=== PATIENT | male | born 1945 | race Caucasian/White ===

== ENCOUNTER 2020-06-15 14:46 | Outpatient (CLI) | payer MEDICARE, SELFPAY ==
--- NOTE | ~2020-06-15 | US_ITS ---
US venous doppler LE RT DATE: 06/15/2020 15:36 INDICATION: Right leg swelling since August 2019 TECHNIQUE: Real-time and color flow imaging and Doppler analysis of the veins of the right lower extr emity COMPARISON: None FINDINGS: The right greater saphenous vein is patent. There is spontaneous and phasic flow and normal augmentation and color flow signal and normal compression of the deep veins of the right lower extre mity. IMPRESSION: No evidence of deep venous thrombosis of the right leg Reviewed, dictated and finalized at Location A. Reviewed, dictated and finalized at location B.
== END 2020-06-15 14:47 | disposition home or self-care (01) ==
PROVIDERS: Visit Provider Orthopaedic Surgery
DX: M79.89 Other specified soft tissue disorders (principal)
CPT/HCPCS: 93971

== ENCOUNTER 2021-10-19 09:40 | Outpatient (CLI) | payer MEDICARE, SELFPAY ==
--- NOTE | 2021-10-19 | ECG_ITS ---
Measurements Intervals [place] Rate: 74 P: AR: 0 QRS: -62 QRSD: 190 T: 73 QT: 448 QTc: 498 Interpretive Statements ELECTRONIC VENTRICULAR PACEMAKER WITH INHIBITION NO FURTHER INTERPRETATION IS POSSIBLE ATYPICAL ECG Electronically Signed On 10-19-2021 10:31:25 ASSOCIATE PRODUCT INTEGRITY ENGINEER by Lawrence Irby D.O.
[2021-10-19 10:05] LABS: Hematocrit 43.4 % (42.0-52.0); Hemoglobin 14.7 g/dL (14.0-18.0)
[2021-10-19 10:33] LABS: Albumin Level 4.4 g/dL (3.5-5.1); Estimated Glomerular Filt Rate > 60; Glucose 115 mg/dL (65-110)
[2021-10-19 11:59] LABS: Hemoglobin A1C 6.2 % (<5.7)
== END 2021-10-19 09:41 | disposition home or self-care (01) ==
LOC: ANHLAB 09:49
PROVIDERS: PCP Family Medicine; Visit Provider Orthopaedic Surgery
DX: Z01.818 Encounter for other preprocedural examination (principal); M17.12 Unilateral primary osteoarthritis, left knee; E11.9 Type 2 diabetes mellitus without complications; I48.91 Unspecified atrial fibrillation
CPT/HCPCS: 36415; 82040; 82565; 82947; 83036; 85014; 85018; 93005

== ENCOUNTER 2025-09-24 11:29 | Outpatient (CLI) | payer MEDICARE, SELFPAY ==
--- NOTE | ~2025-09-24 | XR_ITS ---
EXAMINATION: XR knee LT min 4V, 09/24/2025 11:50 CDT HISTORY: M17.12 - Unilateral primary osteoarthritis, left knee COMPARISON: No comparisons available. Findings: No acute fracture or malalignment. Severe tricompartmental degenerative changes with joint effusion Soft tissues unremarkable. Impression: No acute fracture or malalignment. Reviewed, dictated and finalized at location P. Impression: No acute fracture or malalignment.
--- OUTSIDE RECORDS SUMMARY | 2025-09-24 13:07 | XMS_ITS | Encounter Summary ---
Author Organization [facility] Address [address] [place] [address] Phone Care Team Providers Care Translator Interpreter Name Role Phone Olaf To Oscar DPM Unavailable [phone] Denys La MD Primary Care Provider [phone] Aramis Bae MD Unavailable Kun Renteria MD Unavailable [phone] Nurse, Rajendra Antoine Coag Unavailable Unavailab Nga Santana APRN, CLOTH WASHER Unavailable [phone] Allyssa Michele RN Unavailable Unavailable Reason for Visit * Reason Onset Date Comments Appointment 11/21/2024 Advice Only 11/21/2024 Encounter Details Date Type Department Care Team (Late st Contact Info) Description 11/21/2024 [facility] [address] [place] [address] Denys La MD [address] [address] Appointment; Advice Only Social History Tobacco Use Types Packs/Day Years Used Date Smoking Tobacco: Former Cigarettes 1 Q uit: 03/15/2005 Cigars Smokeless Tobacco: Never Alcohol Use Standard Drinks/Week Comments Not Currently 2 (1 standard drink = 0.6 oz pur e alcohol) rare [facility] Utilities Answer Date Recorded In the past 12 months has th e [employer], gas, oil, or water [employer] threatened to shut off services in your home? No 08/12/2024 Social Connection and Isolation Panel Answer Date Recorded In a typical week, how many times do you talk on the phone with family, friends, or neighbors? Twice a week 08/12/2024 How often do you get togethe r with friends or relatives? Patient declined 08/12/2024 How often do you attend mormon or orthodoxy serv ices? Patient declined 08/12/2024 Do you belong to any clubs o r organizations such as mormon groups, unions, fraternal or athletic groups, or school groups? Yes 08/12/2024 How often do you attend meet ings of the clubs or organizations you belong to? Patient declined 08/12/2024 Are you , , di vorced, , never , or living with a partner? 08/12/2024 AUDIT-C Answer Date Recorded Q1: How often do you have a drink containing alcohol? Never 08/12/2024 Q2: How many drinks containi ng alcohol do you have on a typical day when you are drinking? Patient does not drink Q3: How often do you have si x or more drinks on one occasion? Never 08/12/2024 Overall Financial Resource Strain (CARDIA) Answe r Date Recorded How hard is it for you to pa y for the very basics like food, housing, medical care, and heating? Patient declined 08/12/2024 PHQ-2 Answer Date Recorded PHQ-2 Score 0 07/26/2019 [facility] - Occupational Stress Questionnaire Answer Date Recorded Do you feel stress - tense, restless, nervous, or anxious, or unable to sleep at night because your mind is troubled all the time - these days? Not at all 08/12/2024 Exercise Vital Sign Answer Date Recorde d On average, how many days pe r week do you engage in moderate to strenuous exercise (like a brisk walk)? Patient declined On average, how many minutes do you engage in exercise at this level? Patient declined 08/12/2024 Hunger Vital Sign Answer Date Recorded Within the past 12 months, y ou worried that your food would run out before you got the money to buy more. Never true 08/12/20 24 Within the past 12 months, t he food you bought just didn't last and you didn't have money to get more. Never true 08/12/2024 PRAPARE - Transportation Answer Date Re corded In the past 12 months, has l ack of transportation kept you from medical appointments or from getting medications? No 07/28 In the past 12 months, has l ack of transportation kept you from meetings, work, or from getting things needed for daily living? No 08/12/2024 Housing Stability Vital Sign Answer Danish e Recorded In the last 12 months, was t here a time when you were not able to pay the mortgage or rent on time? Patient declined 01/04/20 Number of Places Lived in the Last Year Not on f ile 01/04/2024 In the last 12 months, was t here a time when you did not have a steady place to sleep or slept in a residential (including now)? Patient declined 01/04/2024 Housing Stability Vital Sign Answer Danish e Recorded In the last 12 months, was t here a time when you were not able to pay the mortgage or rent on time? Patient declined 08/12/20 24 In the past 12 months, how m any times have you moved where you were living? 0 08/12/2024 At any time in the past 12 m [facility], were you homeless or living in a residential (including now)? Patient declined 08/12/2024 Education Answer Date Recorded What is the highest level of school you have completed or the highest degree you have received? 12th grade 09/21/2020 Sexually Active Control Partners Comments Yes Female Sex and Gender Information Value Date Recorded Sex Assigned at Not on file Legal Sex Male 7:05 PM CDT Gender Identity Not on file Sexual Orientation Not on file documented as of this encounter Miscellaneous Notes * Telephone Encounter - Denys La MD - 11/21/2024 11:32 AM DIRECTOR NEWS Thanks for the update. Will discuss during telephone visit today. Thanks! CTOR NEWS * Telephone Encounter - Magalys Dash RN - 11/21/2024 8:06 AM CST Situation: calling, (PRD invalid) This nurse obtained permission from patient to speak with . Calling to ask questions regarding ED visit 11/20. Patient noticed a little swelling on 11/18. The following day he woke up and left hand was very swollen and painful. Patient states that he did not sleep that well, went to the ED 11/20. Swelling decreased in left hand and patient reports little pain. Background: Patient is diabetic. Patient is on prednisone 50 mg tablet daily for 7 days. 11/21 is day 2 of prednisone. ---Fasting blood sugar 292 11/21, which is high for patient. Patient was prescribed Meloxicam 7.5 mg PO daily. Patient states he did take this morning. Lexicompstates- Meloxicam and Warfarin = consider therapy modification. D Meloxicam (Nonsteroidal Anti-Inflammatory Agents (Nonselective)) - Warfarin (Vitamin K Antagonists) Fasting blood sugar 292 at 0355 this am.. Patient ate this morning, having patient take blood sugaragain. Blood at 0815 is 180. Patient is on glimepiride 2 mg daily. Monitors blood sugar once a day. Assessment: Swelling decreased and pain is gone. Advised patient. All Patient Appointments Date & Time Provider Department Dept 11/21/2024 5:00 PM Denys La [facility] Family [facility] Arrive at: Telephone Visit [phone] 11/29/2024 10:15 AM Cornelius Riddle [facility] [phone] 04/04/2025 10:30 AM Nga Caba [facility] [phone] Address verified. Assistive services verified. Recommendation: Advised patient steroids can increase blood sugar, to monitor blood sugar for fasting and each meal, until discussed with provider. Advised patient to hold Meloxicam until discusses with provider. Further monitoring with warfarin. Scheduled patient ED follow up today to discuss recent ED visit. Patient already had a telephone visit scheduled. Called front desk receptionist, patient was not aware, telephone visit was scheduled for today. Called patient and back to ask what appointment they would prefer. Patient prefers telephone visit. Encounter routed to provider high priority to notify. CTOR NEWS documented in this encounter Plan of Treatment Upcoming Encounters Date Type Department Care Team (Late st Contact Info) Description 09/26/2025 7:45 AM CDT Office Visit [facility] - Family Medicine - [place] [address] [place] [address] Cornelius Riddle, BUSINESS SYSTEM CONSULTANT, CLOTH WASHER #2 [facility] [address] [place] [address] 05/19/2026 9:00 AM CDT Office Visit [facility] - Pulmonology & Sleep Medicine - [place] [address] [place] [address] Nga Caba BUSINESS SYSTEM CONSULTANT, CLOTH WASHER #2 [facility] [address] [place] [address] documented as of this encounter Visit Diagnoses Not on filedocumented in this encounter Additional Health Concerns Infection Onset Date Last Indicated Resolved Time Respiratory Rule-Out 11/29/2024 11/29/2024 025 10:21 AM DIRECTOR NEWS COVID - 19 11/29/2024 11/29/2024 11/29/2024 10:2 1 AM DIRECTOR NEWS Respiratory Rule-Out 03/04/2025 03/04/2025 025 10:13 AM CDT Assessment Noted Time PHQ-9 Depression Total Score: 0 08/18/20 21 10:25 AM CDT documented as of this encounter Care Teams Translator Interpreter Relationship Specialty Start Date End Date Denys La MD [address] [address] PCP - General Family Medicine 11/21/17 Olaf To DPM Podiatry 03/28/16 Aramis Bae MD #2 [facility] [address] [place] [address] Consulting Physician Interventional Cardiology 09/23/20 Kun Renteria MD #2 [facility] [address] [place] [address] General Surgery 10/26/20 Rajendra Sarkar Anti Coag [place] 02/19/21 Nga Caba APRN, CLOTH WASHER #2 [facility] [address] [place] [address] Nurse Practitioner Advanced Practice Nurse 03/21/22 Allyssa Michele, RN [place] Nurse Steel Manager 03/26/25 04/04/25 documented as of this encounter
--- OUTSIDE RECORDS SUMMARY | 2025-09-24 13:07 | XMS_ITS | Encounter Summary ---
Author Organization [facility] Address [address] [place] [address] Phone Care Team Providers Care Pharmacy Benefits Coordinator Name Role Phone Olaf To DPM Unavailable [phone] Denys La MD Primary Care Provider [phone] Aramis Bae MD Unavailable Kun Renteria MD Unavailable [phone] Nurse, Rajendra Antoine Coag Unavailable Unavailab Allyssa Kay RN Unavailable Unavailable Nga Caba APRN, CNP Unavailable [phone] Allyssa Michele RN Unavailable Unavailable Allyssa Michele RN Unavailable Unavailable Reason for Visit * Reason Comments Medication Refill Encounter Details Date Type Department Care Team (Late st Contact Info) Description 11/07/2021 Refill [facility] - Family Medicine [facility] [address] [place] [address] Denys La MD #[address] [address] Medication Refill Social History Tobacco Use Types Packs/Day Years Used Date Smoking Tobacco: Former Cigarettes 1 Q uit: 03/15/2005 Cigars Smokeless Tobacco: Never Alcohol Use Standard Drinks/Week Comments Yes 0 (1 standard drink = 0.6 oz pur e alcohol) occasionally PHQ-2 Answer Date Recorded PHQ-2 Score 0 07/26/2019 Education Answer Date Recorded What is the highest level of school you have completed or the highest degree you have received? 12th grade 09/21/2020 Sexually Active Control Partners Comments Yes Female Sex and Gender Information Value Date Recorded Sex Assigned at Not on file Legal Sex Male 7:05 PM CDT Gender Identity Not on file Sexual Orientation Not on file COVID-19 Exposure Response Date Recorded In the last month, have you been in contact with someone who was confirmed or suspected to have Coronavirus / COVID-19? No / Unsure 10/26/2021 12:53 PM STRUCTURAL IRON ERECTOR documented as of this encounter Plan of Treatment Upcoming Encounters Date Type Department Care Team (Late st Contact Info) Description 09/26/2025 7:45 AM CDT Office Visit [facility] - Family Medicine - [place] [address] [place] [address] Cornelius Riddle, CAR SEAT MAKER, MOLASSES AND CARAMEL OPERATOR #2 [facility] [address] [place] [address] 05/19/2026 9:00 AM CDT Office Visit [facility] - Pulmonology & Sleep Medicine [facility] [address] [place] [address] Nga Caba CAR SEAT MAKER, MOLASSES AND CARAMEL OPERATOR #2 [facility] [address] [place] [address] documented as of this encounter Visit Diagnoses Not on filedocumented in this encounter Additional Health Concerns Infection Onset Date Last Indicated Resolved Time COVID - 19 10/26/2021 10/26/2021 11/15/2021 12:1 6 AM STRUCTURAL IRON ERECTOR COVID - 19 Confirmed 10/26/2021 10/26/2021 021 12:16 AM STRUCTURAL IRON ERECTOR Respiratory Rule-Out 11/29/2024 11/29/2024 025 10:21 AM STRUCTURAL IRON ERECTOR COVID - 19 11/29/2024 11/29/2024 11/29/2024 10:2 1 AM STRUCTURAL IRON ERECTOR Respiratory Rule-Out 03/04/2025 03/04/2025 025 10:13 AM CDT Assessment Noted Time PHQ-9 Depression Total Score: 0 08/18/20 21 10:25 AM CDT documented as of this encounter Care Teams Pharmacy Benefits Coordinator Relationship Specialty Start Date End Date Denys La MD #2 [facility] [address] [place] [address] PCP - General Family Medicine 11/21/17 Olaf To DPM Podiatry 03/28/16 Aramis Bae MD #2 [facility] [address] [place] [address] Consulting Physician Interventional Cardiology 09/23/20 Kun Renteria MD #2 [facility] [address] [place] [address] General Surgery 10/26/20 Rajendra Sarkar Anti Coag [place] 02/19/21 Allyssa Michele, RN [place] Logistic Specialist 08/09/21 10/08/23 Nga Caba APRN, MOLASSES AND CARAMEL OPERATOR #2 [facility] [address] [place] [address] Nurse Practitioner Advanced Practice Nurse 03/21/22 Allyssa Michele, RN [place] Nurse Logistic Specialist 06/04/24 06/04/24 Allyssa Michele, RN [place] Nurse Logistic Specialist 03/26/25 04/04/25 documented as of this encounter
--- OUTSIDE RECORDS SUMMARY | 2025-09-24 13:08 | XMS_ITS | Encounter Summary ---
Author Organization [facility] Address [address] [place] [address] Phone Care Team Providers Care Sleep Lab Technician Name Role Phone Olaf To DPM Unavailable [phone] Denys La MD Primary Care Provider [phone] Aramis Bae MD Unavailable Kun Renteria MD Unavailable [phone] Nurse, Rajendra Antoine Coag Unavailable Unavailab Allyssa Kay RN Unavailable Unavailable Nga Caba APRN, CNP Unavailable [phone] Allyssa Michele RN Unavailable Unavailable Allyssa Michele RN Unavailable Unavailable Reason for Visit * Reason Comments Medication Refill Encounter Details Date Type Department Care Team (Late st Contact Info) Description 02/27/2022 Refill [facility] - Family Medicine [facility] [address] [place] [address] Denys La MD #[address] [address] Medication Refill Social History Tobacco Use Types [...] Exposure Response Date Recorded In the last 10 days, have yo u been in contact with someone who was confirmed or suspected to have Coronavirus/COVID-19? No / Unsure 02/25/2022 8:12 AM CDT documented as of this encounter Miscellaneous Notes * Telephone Encounter - Radha Johnson RN - 02/28/2022 9:48 AM CDT Medication failed the protocol, provider to review and approve the medication order if appropriate. Requested Prescriptions Pending Prescriptions Disp Refills colestipol (COLESTID) 1 GM Tablet [Pharmacy Med Name: Colestipol HCl 1 GM Oral Tablet] 360 Tablet 0 Sig: Take 2 tablets by mouth twice daily Bile Acid Sequestrants Protocol Passed - 02/27/2022 10:07 AM Passed - Visit with relevant provider in past year or upcoming 90 days Recent Visits Date Type Provider Dept 02/04/22 Office Visit Cornelius Riddle APRN, SARAH [facility] 11/02/21 Telemedicine Cornelius Riddle APRN, SARAH [facility] 10/29/21 Telemedicine Cornelius Riddle APRN, SAR[facility] 10/26/21 Office Visit Cornelius Riddle APRN, SARAH [facility] 08/03/21 Office Visit Denys La MD [facility] 05/03/21 Office Visit Denys La MD [facility] 03/25/21 Office Visit Cornelius Riddle APRN, SARAH [facility] Showing recent visits within past 365 days and meeting all other requirements Future Appointments Date Type Provider Dept 05/09/22 Appointment Cornelius Riddle APRN, SAR[facility] Showing future appointments within next 90 days and meeting all other requirements Passed - Lipid panel in past year LDL Date Value Ref Range Status 02/07/2022 68 5 - 130 mg/dL Final HDL CHOLESTEROL Date Value Ref Range Status 02/07/2022 43.4 >40 mg/dL Final CHOLESTEROL Date Value Ref Range Status 02/07/2022 151 <=200 mg/dL Final TRIGLYCERIDES Date Value Ref Range Status 02/07/2022 200 (H) <150 mg/dL Final VLDL Date Value Ref Range Status 02/07/2022 40 5 - 55 mg/dL Final CHOL/HDL RATIO Date Value Ref Range Status 02/07/2022 3.5 0.0 - 4.4 Final NON-HDL CHOLESTEROL Date Value Ref Range Status 02/07/2022 107.6 <130 mg/dL Final documented in this encounter Plan of Treatment Upcoming Encounters Date Type Department Care Team (Late st Contact Info) Description 09/26/2025 7:45 AM CDT Office Visit [facility] - Family Medicine - [place] [address] [place] [address] Cornelius Riddle, FORGING DIE SINKER, PAN WASHER HAND #2 [facility] [address] [place] [address] 05/19/2026 9:00 AM CDT Office Visit [facility] - Pulmonology & Sleep Medicine - [place] [address] [place] [address] Nga Caba, FORGING DIE SINKER, PAN WASHER HAND #2 [facility] [address] [place] [address] documented as of this encounter Visit Diagnoses Diagnosis Diarrhea, unspecified type documented in this encounter Additional Health Concerns Infection Onset Date Last Indicated Resolved Time Respiratory Rule-Out 11/29/2024 11/29/2024 025 10:21 AM CULTURE ROOM WORKER COVID - 19 11/29/2024 11/29/2024 11/29/2024 10:2 1 AM CULTURE ROOM WORKER Respiratory Rule-Out 03/04/2025 03/04/2025 025 10:13 AM CDT Assessment Noted Time PHQ-9 Depression Total Score: 0 08/18/20 21 10:25 AM CDT documented as of this encounter Care Teams Sleep Lab Technician Relationship Specialty Start Date End Date Denys La MD #2 [facility] [address] [place] [address] PCP - General Family Medicine 11/21/17 Olaf To DPM Podiatry 03/28/16 Aramis Bae MD #2 [facility] [address] [place] [address] Consulting Physician Interventional Cardiology 09/23/20 Kun Renteria MD #2 [facility] [address] [place] [address] General Surgery 10/26/20 Rajendra Sarkar Anti Coag [place] 02/19/21 Allyssa Michele, RN [place] Injection Molding Machine Operator 08/09/21 10/08/23 Nag Caba APRN, PAN WASHER HAND #2 [facility] [address] [place] [address] Nurse Practitioner Advanced Practice Nurse 03/21/22 Allyssa Michele, RN [place] Nurse Injection Molding Machine Operator 06/04/24 06/04/24 Allyssa Michele, RN [place] Nurse Injection Molding Machine Operator 03/26/25 04/04/25 documented as of this encounter
--- OUTSIDE RECORDS SUMMARY | 2025-09-24 13:08 | XMS_ITS | Encounter Summary ---
Author Organization [facility] Address [address] [place] [address] Care Team Providers Care Relocation Coordinator Name Role Phone Denys La MD Primary Care Provider [phone] Reason for Referral * Diagnostic Imaging (Routine) - Authorized Specialty Diagnoses / Procedures Referred By Contac t Referred To Contact Diagnoses Thoracic aortic aneurysm without rupture, unspecified part Procedures NM MPI SPECT (Rest and/or Stress) Multiple Studies Aramis Bae MD [address] [place] [address] [address] [place] [address] Phone: tel: fax: [address] [address] Referral ID Status Reason Start Date Expiration Date V isits Requested Visits Authorized [id number] Authorized 09/23/2025 10/23/2026 1 1 Encounter Details Date Type Department Care Team (Late st Contact Info) Description 09/23/2025 Orders Only [facility] Counselor at [address] [place] [address] Aramis Bae MD [address] [place] [address] [address] B[address]KS [address] [place] [address] Thoracic aortic aneurysm without rupture, unspecified part (Primary Dx) Social History Tobacco Use Types Packs/Day Years Used Date Smoking Tobacco: Former Smokeless Tobacco: Never Alcohol Use Standard Drinks/Week Comments Never 0 (1 standard drink = 0.6 oz pur e alcohol) AUDIT-C Answer Date Recorded Frequency of Alcohol Consumption Never 10/07/2019 Average Number of Drinks Not on file 019 Frequency of Binge Drinking Not on file 09/27 PHQ-2 Answer Date Recorded PHQ-2 Total Score 0 07/16/2020 Personal Safety Answer Date Recorded Have you ever been in or are you currently in a harmful physical or emotional relationship or is someone making you feel afraid or unsafe? Denies 04/01/2025 Sex and Gender Information Value Date Recorded Sex Assigned at Not on file Legal Sex Male 5:32 PM LIVESTOCK SALES REPRESENTATIVE Gender Identity Male 12/15/2020 8:24 AM LIVESTOCK SALES REPRESENTATIVE Sexual Orientation Straight 12/15/2020 8: 24 AM LIVESTOCK SALES REPRESENTATIVE documented as of this encounter Plan of Treatment Scheduled Orders Name Type Priority Associated Diagnoses Orde r Schedule NM MPI SPECT (Rest and/or Stress) Multiple Studies Imaging Schedule Routine, Read Routine (OP Routine) Thoracic aortic aneurysm without rupture, unspecified part Expected: 09/23/2025, Expires: 09/23/2026 documented as of this encounter Visit Diagnoses Diagnosis Thoracic aortic aneurysm without rupture, unspecified part- Primary documented in this encounter Care Teams Relocation Coordinator Relationship Specialty Start Date End Date Denys La MD [address] [place] [address] PCP - General Family Medicine 09/01/20 documented as of this encounter
--- OUTSIDE RECORDS SUMMARY | 2025-09-24 13:08 | XMS_ITS | Encounter Summary ---
Author Organization [facility] Address [address] [place] [address] Phone Care Team Providers Care Set Decorator Name Role Phone Olaf To DPM Unavailable [phone] Denys La MD Primary Care Provider [phone] Aramis Bae MD Unavailable Kun Renteria MD Unavailable [phone] Nurse, Rajendra Antoine Coag Unavailable Unavailab Allyssa Kay RN Unavailable Unavailable Nga Caba APRN, CNP Unavailable [phone] Allyssa Michele RN Unavailable Unavailable Allyssa Michele RN Unavailable Unavailable Reason for Visit * Reason Comments Medication Refill Encounter Details Date Type Department Care Team (Late st Contact Info) Description 03/20/2022 Refill [facility] #2 [place] [address] Denys La MD #[address] [address] Medication Refill Social History Tobacco Use Types [...] suspected to have Coronavirus/COVID-19? No / Unsure 03/21/2022 9:26 AM CDT documented as of this encounter Plan of Treatment Upcoming Encounters Date Type Department Care Team (Late st Contact Info) Description 09/26/2025 7:45 AM CDT Office Visit [facility] - Family Medicine [facility] #2 [place] [address] Cornelius Riddle APRN, JEWELRY BENCH MOLDER #2 [facility] [address] [place] [address] 05/19/2026 9:00 AM CDT Office Visit [facility] - Pulmonology & Sleep Medicine [facility] #2 [place] [address] Nga Caba APRN, JEWELRY BENCH MOLDER #2 [facility] [address] [place] [address] documented as of this encounter Visit Diagnoses Not on filedocumented in this encounter Additional Health Concerns Infection Onset Date Last Indicated Resolved Time Respiratory Rule-Out 11/29/2024 11/29/2024 025 10:21 AM PUBLIC AREA SUPERVISOR COVID - 19 11/29/2024 11/29/2024 11/29/2024 10:2 1 AM PUBLIC AREA SUPERVISOR Respiratory Rule-Out 03/04/2025 03/04/2025 025 10:13 AM CDT Assessment Noted Time PHQ-9 Depression Total Score: 0 08/18/20 21 10:25 AM CDT documented as of this encounter Care Teams Set Decorator Relationship Specialty Start Date End Date Denys La MD #2 [facility] [address] [place] [address] PCP - General Family Medicine 11/21/17 Olaf To DPM Podiatry 03/28/16 Aramis Bae MD #2 [facility] [address] [place] [address] Consulting Physician Interventional Cardiology 09/23/20 Kun Renteria MD #2 [facility] [address] [place] [id number] General Surgery 10/26/20 NurseRajendra Anti Coag [place] 02/19/21 Allyssa Michele, RN [place] Differential Repairer 08/09/21 10/08/23 Nga Caba APRN, JEWELRY BENCH MOLDER #2 [facility] [address] [place] [address] Nurse Practitioner Advanced Practice Nurse 03/21/22 Allyssa Michele, RN [place] Nurse Differential Repairer 06/04/24 06/04/24 Allyssa Michele, RN [place] Nurse Differential Repairer 03/26/25 04/04/25 documented as of this encounter
--- OUTSIDE RECORDS SUMMARY | 2025-09-24 13:08 | XMS_ITS | Encounter Summary ---
Author Organization [facility] Address [address] [place] [address] Phone Care Team Providers Care Chrome Tanner Name Role Phone Olaf To DPM Unavailable [phone] Denys La MD Primary Care Provider [phone] Aramis Bae MD Unavailable Kun Renteria MD Unavailable [phone] Nurse, Benita Antoine Coag Unavailable Unavailab Allyssa Kay RN Unavailable Unavailable Nga Caab APRN, CNP Unavailable [phone] Allyssa Michele RN Unavailable Unavailable Allyssa Michele RN Unavailable Unavailable Reason for Visit * Reason Comments Medication Refill Encounter Details Date Type Department Care Team (Late st Contact Info) Description 07/24/2023 Refill [facility] - [place] #2 [place] [address] Denys La MD #[address] [address] Medication Refill Social History Tobacco Use Types Packs/Day Years Used Date Smoking Tobacco: Former Cigarettes 1 Q uit: 03/15/2005 Cigars Smokeless Tobacco: Never Alcohol Use Standard Drinks/Week Comments Yes 0 (1 standard drink = 0.6 oz pur e alcohol) rare PHQ-2 Answer Date Recorded PHQ-2 Score 0 [...] encounter Miscellaneous Notes * Telephone Encounter - Diya Brown RN - 07/24/2023 3:01 PM CDT Anticoag Flowsheet last updated 04/25/23 - 7.5 mg daily - repeat lab 05/26/23 Pt had lab done at [facility] prior to pacemaker placement. Lab Results - documented in this encounter (ABNORMAL) Protime-INR (06/05/2023 11:48 AM CDT) Lab Results - (ABNORMAL) Protime-INR (06/05/2023 11:48 AM CDT) PT 28.0 (H) 10.3 - 13.7 sec ? [facility] ([facility]) ?? INR 2.46 (H) 0.90 - 1.20 ? [facility] ([facility] ?? Should he continue same dose? Repeat? documented in this encounter Plan of Treatment Upcoming Encounters Date Type Department Care Team (Late st Contact Info) Description 09/26/2025 7:45 AM CDT Office Visit [facility] - Family Medicine - [place] #2 [place] [address] Cornelius Riddle, ANGEL, PROPOSAL COORDINATOR #[address] [address] 05/19/2026 9:00 AM CDT Office Visit [facility] - Pulmonology & Sleep Medicine - [place] #2 [place] [address] Nga Caba APRN, PROPOSAL COORDINATOR #2 [facility] [address] [place] [address] documented as of this encounter Visit Diagnoses Not on filedocumented in this encounter Additional Health Concerns Infection Onset Date Last Indicated Resolved Time Respiratory Rule-Out 11/29/2024 11/29/2024 025 10:21 AM GERIATRIC PERSONAL CARE AIDE COVID - 19 11/29/2024 11/29/2024 11/29/2024 10:2 1 AM GERIATRIC PERSONAL CARE AIDE Respiratory Rule-Out 03/04/2025 03/04/2025 025 10:13 AM CDT Assessment Noted Time PHQ-9 Depression Total Score: 0 08/18/20 10:25 AM CDT documented as of this encounter Care Teams Chrome Tanner Relationship Specialty Start Date End Date Denys La MD #2 [facility] [address] [place] [address] PCP - General Family Medicine 11/21/17 Olaf To DPM Podiatry 03/28/16 Aramis Bae MD #2 [facility] [address] [place] [address] Consulting Physician Interventional Cardiology 09/23/20 Kun Renteria MD #2 [facility] [address] [place] [address] General Surgery 10/26/20 NurseBenita Anti Coag [place] 02/19/21 Allyssa Michele, VIOLETA [place] Diesel Lube Tech 08/09/21 10/08/23 Nga Caba APRN, PROPOSAL COORDINATOR #2 [facility] [address] [place] [address] Nurse Practitioner Advanced Practice Nurse 03/21/22 Allyssa Michele RN [place] Nurse Diesel Lube Tech 06/04/24 06/04/24 Allyssa Michele RN [place] Nurse Diesel Lube Tech 03/26/25 04/04/25 documented as of this encounter
--- OUTSIDE RECORDS SUMMARY | 2025-09-24 13:08 | XMS_ITS | Encounter Summary ---
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
--- OUTSIDE RECORDS SUMMARY | 2025-09-24 13:08 | XMS_ITS | Encounter Summary ---
Author Organization [facility] Address [address] [place] [address] Phone Care Team Providers Care Patch Driller Name Role Phone Olaf To Oscar DPM Unavailable [phone] Denys La MD Primary Care Provider [phone] Aramis Bae MD Unavailable Kun Renteria MD Unavailable [phone] Nurse, Rajendra Antoine Coag Unavailable Unavailab Nga Santana APRN, SPEECH LANGUAGE PATHOLOGY ASSISTANT Unavailable [phone] Allyssa Michele RN Unavailable Unavailable Allyssa Michele RN Unavailable Unavailable Reason for Visit * Reason Comments Medication Refill Encounter Details Date Type Department Care Team (Late st Contact Info) Description 04/19/2024 Refill [facility] - Family Medicine [facility] #2 [place] [address] Denys La MD #[address] [address] Medication Refill Social History Tobacco Use Types Packs/Day Years Used Date Smoking Tobacco: Former Cigarettes 1 Q uit: 03/15/2005 Cigars Smokeless Tobacco: Never Alcohol Use Standard Drinks/Week Comments Yes 0 (1 standard drink = 0.6 oz pur e alcohol) rare [facility] Utilities Answer Date Recorded In the past 12 months has e [employer], gas, oil, or water [employer] threatened to shut off services in your home? Patient declined 01/04/2024 Social Connection and Isolation Panel Answer Date Recorded In a typical week, how many times do you talk on the phone with family, friends, or neighbors? Patient declined 01/04/2024 How often do you get togethe r with friends or relatives? Patient declined 01/04/2024 How often do you attend hinduism or uatsdin serv ices? Patient declined 01/04/2024 Do you belong to any clubs o r organizations such as hinduism groups, unions, fraternal or athletic groups, or school groups? Patient declined 01/04/2024 How often do you attend meet ings of the clubs or organizations you belong to? Patient declined 01/04/2024 Are you , , di vorced, , never , or living with a partner? Patient declined 01/04/2024 AUDIT-C Answer Date Recorded Q1: How often do you have a drink containing alc ohol? Patient declined 01/04/2024 Q2: How many drinks containi ng alcohol do you have on a typical day when you are drinking? Patient declined 01/04/2024 Q3: How often do you have si x or more drinks on one occasion? Patient declined 01/04/2024 Overall Financial Resource Strain (CARDIA) Answe r Date Recorded How hard is it for you to pa y for the very basics like food, housing, medical care, and heating? Patient declined 01/04/2024 PHQ-2 Answer Date Recorded PHQ-2 Score 0 07/26/2019 [facility] - Occupational Stress Questionnaire Answer Date Recorded Do you feel stress - tense, restless, nervous, or anxious, or unable to sleep at night because your mind is troubled all the time - these days? Patient declined 01/04/2024 Exercise Vital Sign Answer Date Recorde d On average, how many days pe r week do you engage in moderate to strenuous exercise (like a brisk walk)? Patient declined On average, how many minutes do you engage in exercise at this level? Patient declined 01/04/2024 Hunger Vital Sign Answer Date Recorded Within the past 12 months, y ou worried that your food would run out before you got the money to buy more. Patient declined Within the past 12 months, t he food you bought just didn't last and you didn't have money to get more. Patient declined 06/2024 PRAPARE - Transportation Answer Date Re corded In the past 12 months, has l ack of transportation kept you from medical appointments or from getting medications? Patient declined 01/04/2024 In the past 12 months, has l ack of transportation kept you from meetings, work, or from getting things needed for daily living? Patient declined 01/04/2024 Housing Stability Vital Sign Answer Danish e Recorded In the last 12 months, was t here a time when you were not able to pay the mortgage or rent on time? Patient declined 01/04/20 24 Number of Places Lived in the Last Year Not on f ile 01/04/2024 In the last 12 months, was t here a time when you did not have a steady place to sleep or slept in a fpc (including now)? Patient declined 01/04/2024 Education Answer Date Recorded What is the [...] on file documented as of this encounter Plan of Treatment Upcoming Encounters Date Type Department Care Team (Late st Contact Info) Description 09/26/2025 7:45 AM CDT Office Visit [facility] - Family Medicine - [place] #2 [place] [address] Cornelius Riddle APRN, SPEECH LANGUAGE PATHOLOGY ASSISTANT #2 [facility] [address] [place] [address] 05/19/2026 9:00 AM CDT Office Visit [facility] - Pulmonology & Sleep Medicine - [place] #2 [place] [id number] Nga Caba APRN, SPEECH LANGUAGE PATHOLOGY ASSISTANT #2 [facility] [address] [place] [address] documented as of this encounter Visit Diagnoses Diagnosis 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 documented in this encounter Additional Health Concerns Infection Onset Date Last Indicated Resolved Time Respiratory Rule-Out 11/29/2024 11/29/2024 025 10:21 AM BILLIARD TABLE REPAIRER COVID - 19 11/29/2024 11/29/2024 11/29/2024 10:2 1 AM BILLIARD TABLE REPAIRER Respiratory Rule-Out 03/04/2025 03/04/2025 025 10:13 AM CDT Assessment Noted Time PHQ-9 Depression Total Score: 0 08/18/20 10:25 AM CDT documented as of this encounter Care Teams Patch Driller Relationship Specialty Start Date End Date Denys La MD #2 [facility] [address] [place] [address] PCP - General Family Medicine 11/21/17 Olaf To DPM Podiatry 03/28/16 Aramis Bae MD #2 [facility] [address] [place] [address] Consulting Physician Interventional Cardiology 09/23/20 Kun Renteria MD #2 [facility] [address] [place] [address] General Surgery 10/26/20 Rajendra Sarkar Anti Coag [place] 02/19/21 Nga Caba APRN, SPEECH LANGUAGE PATHOLOGY ASSISTANT #2 [facility] [address] [place] [address] Nurse Practitioner Advanced Practice Nurse 03/21/22 Allyssa Michele RN [place] Nurse Call Center Team Leader 06/04/24 06/04/24 Allyssa Michele RN [place] Nurse Call Center Team Leader 03/26/25 04/04/25 documented as of this encounter
--- OUTSIDE RECORDS SUMMARY | 2025-09-24 13:08 | XMS_ITS | Encounter Summary ---
Author Organization [facility] Address [address] [place] [address] Phone Care Team Providers Care Performance Improvement Director Name Role Phone Olaf To Oscar DPM Unavailable [phone] Denys La MD Primary Care Provider [phone] Aramis Bae MD Unavailable Kun Renteria MD Unavailable [phone] Nurse, Rajendra Antoine Coag Unavailable Unavailab Madeline Ferrera RN Unavailable UnavailAnnita Orozco RN Unavailable Unavailable Allyssa Michele RN Unavailable Unavailable Nga Caba APRN, OCULAR CARE TECHNOLOGIST Unavailable [phone] Allyssa Michele RN Unavailable Unavailable Allyssa Michele RN Unavailable Unavailable Reason for Visit * Reason Comments Medication Refill Encounter Details Date Type Department Care Team (Late st Contact Info) Description 10/18/2020 Refill [facility] [address] [place] [address] Denys La MD #[address] [address] Medication Refill Social History Tobacco Use Types [...] have Coronavirus / COVID-19? No / Unsure 10/16/2020 1:45 PM OIL FIELD TECHNICIAN documented as of this encounter Miscellaneous Notes * Telephone Encounter - Diya Brown RN - 10/19/2020 11:45 AM CST dicyclomine (BENTYL) 10 MG Capsule 90 Cap 3 12/31/2019 Sig: Take 1 Cap by mouth 3 times daily. Class: E Prescribe Route: Oral 1 year supply authorized 12/31/19 FIELD TECHNICIAN documented in this encounter Plan of Treatment Upcoming Encounters Date Type Department Care Team (Late st Contact Info) Description 09/26/2025 7:45 AM CDT [facility] Visit [facility] - Family Medicine - [place] #2 [place] [address] Cornelius Riddle APRN, OCULAR CARE TECHNOLOGIST #2 [facility] [address] [place] [address] 05/19/2026 9:00 AM CDT Office Visit [facility] - Pulmonology & Sleep Medicine - [place] #2 [place] [address] Nga Caba APRN, OCULAR CARE TECHNOLOGIST #2 [facility] [address] [place] [address] documented as of this encounter Visit Diagnoses Not on filedocumented in this encounter Additional Health Concerns Infection Onset Date Last Indicated Resolved Time COVID - 19 10/26/2021 10/26/2021 11/15/2021 12:1 6 AM OIL FIELD TECHNICIAN COVID - 19 Confirmed 10/26/2021 10/26/2021 021 12:16 AM OIL FIELD TECHNICIAN Respiratory Rule-Out 11/29/2024 11/29/2024 025 10:21 AM OIL FIELD TECHNICIAN COVID - 19 11/29/2024 11/29/2024 11/29/2024 10:2 1 AM OIL FIELD TECHNICIAN Respiratory Rule-Out 03/04/2025 03/04/2025 025 10:13 AM CDT Assessment Noted Time PHQ-9 Depression Total Score: 0 12/03/19 3:00 PM OIL FIELD TECHNICIAN documented as of this encounter Care Teams Performance Improvement Director Relationship Specialty Start Date End Date Denys La MD #2 [facility] [address] [place] [address] PCP - General Family Medicine 11/21/17 Olaf To DPM Podiatry 03/28/16 Aramis Bae MD #2 [facility] [address] [place] [address] Consulting Physician Interventional Cardiology 09/23/20 Kun Renteria MD #2 [facility] [address] [place] [address] General Surgery 10/26/20 Nurse, Rajendra Anti Coag [place] 02/19/21 Madeline Friedman RN [place] Circular Sawyer Helper 05/03/21 05/23/21 Annita Birch RN [place] Circular Sawyer Helper 05/24/21 08/08/21 Michele, Allyssa M, RN [place] Circular Sawyer Helper 08/09/21 10/08/23 Nga Caba, INSPECTOR PLUMBING, OCULAR CARE TECHNOLOGIST #[address] [address] Nurse Practitioner Advanced Practice Nurse 03/21/22 Allyssa Michele RN [place] Nurse Circular Sawyer Helper 06/04/24 06/04/24 Allyssa Michele RN [place] Nurse Circular Sawyer Helper 03/26/25 04/04/25 documented as of this encounter
--- OUTSIDE RECORDS SUMMARY | 2025-09-24 13:08 | XMS_ITS | Clinical Summary ---
Author Organization [facility] Medical Office Building A Address [address] [place] [address] Care Team Providers Care Rn Case Mgr Name Role Phone Denys La MD Primary Care Provider [phone] Allergies No known active allergies Medications cyanocobalamin (Vitamin B-12) 100 mcg tablet Take 1 tablet (100 mcg total) by mouth daily Active glimepiride (AMARYL) 1 mg tablet Take 1 tablet (1 mg total) by mouth daily before breakfast 3 9 Active lisinopril (PRINIVIL,ZESTRIL) 20 mg tablet Take 1 tablet (20 mg total) by mouth daily 9 Active tamsulosin (FLOMAX) 0.4 mg extended release capsule Take 1 capsule (0.4 mg total) by mouth daily 9 Active polycarbophil (FIBERCON) 625 mg tablet Take 1 tablet (625 mg total) by mouth daily Active dicyclomine (BENTYL) 10 mg capsule Take 1 capsule (10 mg total) by mouth 4 (four) times a day before meals and nightly Active colestipoL (COLESTID) 1 gram tablet Take 1 tablet (1 g total) by mouth 2 (two) times a day Active ergocalciferol (VITAMIN D) 50,000 unit capsule Take 1 capsule (50,000 Units total) by mouth once a week Active warfarin (COUMADIN) 5 mg tablet Take 1 tablet (5 mg total) by mouth daily 90 tablet 3 3 Active warfarin (COUMADIN) 7.5 mg tablet Take 1 tablet (7.5 mg total) by mouth daily 90 tablet 3 4 Active furosemide (LASIX) 20 mg tablet Take 1 tablet by mouth once daily 90 tablet 3 5 Active rosuvastatin (CRESTOR) 20 mg tablet Take 1 tablet by mouth once daily 90 tablet 3 5 Active warfarin (COUMADIN) 2 mg tabletIndications:W arfarin anticoagulation Take 3 tablets (6 mg total) by mouth as directed 180 tablet 3 5 Active Active Problems Problem Noted Date Diagnosed Date Pacemaker 06/20/2023 Morbid (severe) obesity due to excess calories 0 02/28/2022 Sick sinus syndrome 09/23/2020 Overview (09/23/2020): Sick sinus syndrome with atrial fibrillation rates down to the 30s despite CPAP machine use and complaints of fatigue, status post Biotronik Edora 8 D SRT on 16 September 2020 (RL). Assessment & Plan (09/23/2020 3:01 PM CDT): Patient complains of dizziness for at least a week. We discussed various possibilities but clearly it was not from low blood pressure or high blood pressure or slow heart rates Patient keeps a good record of blood pressure heart rates and there were no abnormalities that I could see. We looked at the medication and I wonder if Flomax could be the problem. I advised him to follow up with his primary care doctor soon. 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 10/07/2019 Encounters Date Type Department Care Team Description 09/23/2025 Orders Only [place] [employer] [facility] [employer] at [address] [place] [phone] Aramis Bae MD Thoracic aortic aneurysm without rupture, unspecified part (Primary Dx) 09/23/2025 Telephone [place] [employer] [facility] [employer] at [address] [place] [phone] Aramis Bae MD 09/12/2025 9:00 AM CDT Ancillary Procedure [place] [employer] [id number] [place] [address] [address] [place] [address] SSS (sick sinus syndrome) (HCC); Pacemaker 09/12/2025 Orders Only [place] [employer] [address] [place] [address] [address] [place] [address] Carmenza Noel MA SSS (sick sinus syndrome) (HCC) (Primary Dx); Pacemaker; Pacemaker reprogramming/check; Chronic atrial fibrillation (HCC) 09/11/2025 12:55 PM CDT Lab [address] Chronic atrial fibrillation (HCC) 09/11/2025 Anticoagulation Visit [place] [employer] [facility] [employer] at [address] [address] Marlon Rouse MA 09/04/2025 Anticoagulation Visit [place] [employer] [facility] [employer] at [address] [phone] Marlon Rouse MA 09/03/2025 9:45 AM CDT Lab [address] Chronic atrial fibrillation (HCC) 09/03/2025 Results Follow-Up [place] [employer] [facility] [employer] at [address] [phone] Marlon Rouse MA Protime-INR 08/06/2025 9:30 AM CDT Lab [address] Chronic atrial fibrillation (HCC) 08/06/2025 Anticoagulation Visit [place] [employer] [facility] [employer] at [address] [phone] Marlon Rouse MA 07/24/2025 Telephone [place] [employer] [facility] [employer] at [address] [phone] Aramis Bae MD 07/14/2025 Results Follow-Up [place] [employer] [facility] [employer] at [address] [place] [address] Chest WO Contrast 07/10/2025 9:45 AM CDT Lab [address] Chronic atrial fibrillation (HCC) 07/10/2025 Anticoagulation Visit [place] [employer] [facility] [employer] at [address] [place] [address] Salome Humphrey MA 07/10/2025 Results Follow-Up [place] [employer] [facility] [employer] at [address] [place] [phone] Salome Humphrey MA Protime-INR 07/01/2025 Orders Only [place] [employer] [facility] [employer] at [address] [place] [address] Aramis Bae MD Warfarin anticoagulation (Primary Dx) 07/01/2025 Anticoagulation Visit [place] [employer] [facility] [employer] at [address] [place] [address] Salome Humphrey MA 06/30/2025 9:15 AM CDT Ancillary Procedure [place] [employer] [facility] [employer] at [address] [place] [address] Pacemaker reprogramming/check (Primary Dx); SSS (sick sinus syndrome) (HCC); Pacemaker 06/30/2025 9:15 AM CDT Office Visit [place] [facility] [employer] at [address] [place] [address] Aramis Bae MD Chronic atrial fibrillation (HCC) (Primary Dx); RASHMI on CPAP; Pacemaker; Aneurysm of ascending aorta without rupture 06/30/2025 8:40 AM CDT Lab [address] Chronic atrial fibrillation (HCC) 06/30/2025 Results Follow-Up [place] [employer] [facility] [employer] at [address] [place] [address] Marlon Rouse MA Protime-INR 06/25/2025 6:32 AM CDT - 06/25/2025 11:59 PM CDT Hospital Encounter [facility] [address] [place] [address] Benign hypertension; Atherosclerosis of [place] coronary artery of buck[place] heart without angina pectoris Discharge Disposition: Discharge to home or self care 06/24/2025 8:34 AM CDT - 06/24/2025 11:59 PM CDT Hospital Encounter [facility] [address] [place] [address] Aneurysm of ascending aorta without rupture Discharge Disposition: Discharge to home or self care from Last 3 Months Surgical History Surgery Date Site/Laterality Comments HERNIA REPAIR Medical History Medical History Date Comments Coronary artery disease Diabetes mellitus Sleep apnea Hypertension Family History Medical History Relation Name Comments Cancer Father COPD Mother Relation Name Status Comments Father Mother Sister Alive TWO SISTERS Social History Tobacco Use Types Packs/Day Years Used Date Smoking Tobacco: Former Smokeless Tobacco: Never Tobacco Cessation:Counseling Given: Not Answered Alcohol Use Standard Drinks/Week Comments Never 0 [...] on file Legal Sex Male 5:32 PM SUPPORT REPRESENTATIVE Gender Identity Male 12/15/2020 8:24 AM SUPPORT REPRESENTATIVE Sexual Orientation Straight 12/15/2020 8: 24 AM SUPPORT REPRESENTATIVE Obstetrics History Last Filed Vital Signs Vital Sign Reading Time Taken Comments Blood Pressure 135/86 06/30/2025 9:02 AM CDT Pulse 80 06/30/2025 9:02 AM CDT Temperature 36.6 C (97.9 F) 04/01/2025 6:56 PM CDT Respiratory Rate 18 06/30/2025 9:02 AM CDT Oxygen Saturation 100% 04/01/2025 6:56 PM CDT Inhaled Oxygen Concentration - - Weight 129.7 kg (286 lb) 06/30/2025 9:02 AM CDT Height 190.5 cm (6' 3) 06/30/2025 9:02 AM CDT Body Mass Index 35.75 06/30/2025 9:02 AM CDT Plan of Treatment Health Maintenance Due Date Last Done Comments Hepatitis B Screening 1963 Well Visit 65+ 2010 Depression Screening 07/07/2021 07/07/2020, 07/07/20 Fall Risk Assessment 09/17/2021 09/17/2020 DTaP/Tdap/Td Vaccine (2 - Tdap) 07/13/2025 5 Covid-19 Vaccine (4 - 2024-2 6 season) 2025 08/24/2021, 01/26/2021, 12/29/2020 Influenza Vaccine (#1) 2025 2, 07/29/2021, 07/29/2020, Additional history exists Zoster Vaccine (2 of 2) 09/02/2025 07/08/2025 Pneumococcal vaccine 65+ Completed 020, 09/05/2016, 08/08/2011 Abdominal Aortic Aneurysm (A AA) Screen Completed 02/24/2022, 01/09/2020, 06/24/2019, Additional history exists Medical Devices Implanted Type Area Senior Clinical Data Coordinator Device Identifier Shelf Expiration Date Model / Serial / Lot [employer] Inc [id number] Endocardial Pacing Lead Promri Solia T 60 - [id number] - [id number] Implanted:Qty: 1 on 09/16/2020 by Henrique Bravo MD at [facility] Lead [employer] Inc 10/26/2021 [id number] / [id number] / [employer] Inc [id number] Edora Promri [id number] 1 Chamber Rate Adaptive Unipolar Bipolar - [id number] - [id number] Implanted:Qty: 1 on 09/16/2020 by Henrique Bravo MD at [facility] Pacemaker [employer]ik Inc 10/26/2020 [id number] / [id number] / [employer] Caroline [id number] Synergy 2.75mm 16mm 144cm Radiopaque 1 Access Port Inflation - [id number] Implanted:Qty: 1 on 07/16/2020 by Aramis Bae MD at [facility] Stent [employer] Caroline 10/06/2021 [id number] / / [id number] [employer] Caroline [id number] Synergy 2.75mm 20mm 144cm Radiopaque 1 Access Port Inflation - [id number] Implanted:Qty: 1 on 07/16/2020 by Aramis Bae MD at [facility] [employer]ent [employer] Caroline 11/12/2021 [id number] / / [id number] Medtronic Inc [id number] Tyrx 3.3x2.9in Large Envelope Absorbable Polyarylate Minocycline - [id number] Implanted:Qty: 1 on 09/16/2020 by Henrique Bravo MD at [facility] [employer] Inc 05/28/2021 [id number] / / [id number] Procedures Procedure Name Priority Date/Time Associated Diagnosis Comments DEVICE CHECK - REMOTE Routine 09/12/2025 7:07 AM CDT SSS (sick sinus syndrome) (HCC) Pacemaker PROTIME-INR Routine 09/11/2025 12:54 PM CDT Chronic atrial fibrillation (HCC) PROTIME-INR Routine 09/03/2025 9:43 AM CDT Chronic atrial fibrillation (HCC) PROTIME-INR Routine 08/06/2025 9:26 AM CDT Chronic atrial fibrillation (HCC) PROTIME-INR Routine 07/10/2025 9:46 AM CDT Chronic atrial fibrillation (HCC) DEVICE CHECK - IN OFFICE Routine 06/30/2025 8:53 AM CDT SSS (sick sinus syndrome) (HCC) Pacemaker PROTIME-INR Routine 06/30/2025 8:41 AM CDT Chronic atrial fibrillation (HCC) TRANSTHORACIC ECHO (TTE) COMPLETE W DOPPLER/CF WO CONTRAST Routine 06/25/2025 7:24 AM CDT Benign hypertension Atherosclerosis of [place] coronary artery of [place] heart without angina pectoris CT CHEST WO CONTRAST Schedule Routine, Read Routine (OP Routine) 06/24/2025 8:50 AM CDT Aneurysm of ascending aorta without rupture CTA ABDOMINAL AORTA AND BILATERAL ILIOFEMORAL RUNOFF Schedule MADELIN, Read Routine (Patient lives out of area) 02/24/2022 10:22 AM CDT Claudication from Last 3 Months or Most Recently Relevant to Health Maintenance Results * DEVICE CHECK - REMOTE (09/12/2025 7:07 AM CDT) Anatomical Region Laterality Modality Other Narrative 09/16/2025 3:25 PM CDT Images from the original result were not included. 09/12/2025 [employer] quarterly remote device check NOTE The following shows snippets from the complete quarterly report. The complete report in its entirety is attached to this Result Text in Audio Specialist Presenting EGM Last in-office check 06/30/2025 Next in-office check 07/06/2026 SC PPM, implanted 09/16/2020 Battery longevity = 60% RVp 100% No event episodes or alerts were recorded since last in-office check on 06/30/2025. Device Nurse Review and Recommendations below Reviewed By Michelle Pineda VINE PRUNER at 12:23 PM ATTESTATION I have reviewed the device interrogation report associated with this encounter in detail. I agree with the documentation recorded/scanned into the electronic medical record. Recommendations: Continue current device follow-up. Aramis Bae MD MD Review and Recommendations below (please forward an in-basket message to your MA if check requires attention) us Aramis Bae MD [facility] CARDIAC SERVICES PROCEDURES Final Result * (ABNORMAL) Protime-INR (09/11/2025 12:54 PM CDT) PT 31.9(H) 10.2 - 13.5 sec [facility] ([facility]) INR 2.88(H) 0.90 - 1.20 [facility] ([place]) Comment: Interpretive data Oral anticoagulant therapeutic ranges: Venous thromboembolism prophylaxis or treatment: 2.0-3.0 CARDIOLOGY Standard range: 2.0-3.0 High-intensity range: 2.5-3.5 Refer to indication-specific guidelines for appropriate target ranges for prosthetic heart valve replacement. Current interpretive data was last revised on 2019. Blood 09/11/2025 12:5 4 PM CDT 09/11/2025 1:12 PM CDT Aramis Bae MD LAB BLOOD ORDERABLES Final Resu lt Performing Organization Address City/[facility] Co de Phone Number [facility] (BENITA) [address] [facility] [place] [address] * (ABNORMAL) Protime-INR (09/03/2025 9:43 AM CDT) PT 40.2(H) 10.2 - 13.5 sec [facility] (BENITA) INR 3.65(H) 0.90 - 1.20 [facility] (BENITA) Comment: Interpretive data Oral anticoagulant therapeutic ranges: Venous thromboembolism prophylaxis or treatment: 2.0-3.0 CARDIOLOGY Standard range: 2.0-3.0 High-intensity range: 2.5-3.5 Refer to indication-specific guidelines for appropriate target ranges for prosthetic heart valve replacement. Current interpretive data was last revised on 2019. Blood 09/03/2025 9:43 AM CDT 09/03/2025 10:30 AM CDT Aramis Bae MD LAB BLOOD ORDERABLES Final Resu lt [facility] (LOW[place]) [address] [facility] [place] [address] * (ABNORMAL) Protime-INR (08/06/2025 9:26 AM CDT) PT 26.1(H) 10.2 - 13.5 sec [facility] ([place]) INR 2.35(H) 0.90 - 1.20 [facility] (LOW[place]) Comment: Interpretive data Oral anticoagulant therapeutic ranges: Venous thromboembolism prophylaxis or treatment: 2.0-3.0 CARDIOLOGY Standard range: 2.0-3.0 High-intensity range: 2.5-3.5 Refer to indication-specific guidelines for appropriate target ranges for prosthetic heart valve replacement. Current interpretive data was last revised on 2019. Blood 08/06/2025 9:26 AM CDT 08/06/2025 10:42 AM CDT Aramis Bae MD LAB BLOOD ORDERABLES Final Resu lt Performing Organization Address City/[facility] Co de Phone Number ACEJOSE G SALINAS ([place]) [address] [facility] [place] [address] * (ABNORMAL) Protime-INR (07/10/2025 9:46 AM CDT) PT 29.6(H) 10.2 - 13.5 sec [facility] ([place]) INR 2.67(H) 0.90 - 1.20 [facility] (LOW[place]) Comment: Interpretive data Oral anticoagulant therapeutic ranges: Venous thromboembolism prophylaxis or treatment: 2.0-3.0 CARDIOLOGY Standard range: 2.0-3.0 High-intensity range: 2.5-3.5 Refer to indication-specific guidelines for appropriate target ranges for prosthetic heart valve replacement. Current interpretive data was last revised on 2019. Blood 07/10/2025 9:46 AM CDT 07/10/2025 10:35 AM CDT Aramis Bae MD LAB BLOOD ORDERABLES Final Resu lt [facility]O ([place]) [address] [facility] [place] [address] * DEVICE CHECK - IN OFFICE (06/30/2025 8:53 AM CDT) Anatomical Region Laterality Modality Other Narrative 06/30/2025 11:55 AM CDT Images from the original result were not included. 06/30/2025 [employer] in-office device check The complete report is attached to this Result Text in Audio Specialist Aramis Bae MD CV CARDIAC SERVICES PROCEDURES Final Result * (ABNORMAL) Protime-INR (06/30/2025 8:41 AM CDT) PT 35.4(H) 9.7 - 13.0 sec C[facility]ACE NI[facility]O ([place]) INR 3.20(H) 0.90 - 1.20 CANDACE NI[facility]O ([place]) Comment: Interpretive data Oral anticoagulant therapeutic ranges: Venous thromboembolism prophylaxis or treatment: 2.0-3.0 CARDIOLOGY Standard range: 2.0-3.0 High-intensity range: 2.5-3.5 Refer to indication-specific guidelines for appropriate target ranges for prosthetic heart valve replacement. Current interpretive data was last revised on 2019. Blood 06/30/2025 8:41 AM CDT 06/30/2025 10:40 AM CDT Aramis Bae MD LAB BLOOD ORDERABLES Final Resu lt [facility] ([place]) [address] [facility] [place] [address] * TRANSTHORACIC ECHO (TTE) COMPLETE W DOPPLER/CF WO CONTRAST (06/25/2025 7:24 AM CDT) EF Mod BP 48 % CONS SCIMAGE Anatomical Region Laterality Modality Ultrasound 06/25/2025 7:01 AM CDT Narrative 06/25/2025 9:37 AM CDT [address] [address] Echocardiogram Report ADDENDUM Patient Name: MARK MONGE : 1945 Study Date: 06/25/2025 7:01:51 AM Gender: M Tech: NL Ref Provider: ARAMIS BAE Height(Cm): 188 BSA: 2.6 Weight(Kg): 129.3 Quality: Adequate Order Provider: ARAMIS BAE PROCEDURES: Echocardiographic Report: Transthoracic echocardiogram with complete 2D, M-Mode, and color Doppler examination. INDICATIONS: I10 Essential (primary) hypertension and I25.10 Atherosclerotic heart disease of [place] coronary artery without angina pectoris. MEASUREMENTS: 2D/MM Value Range Doppler Value Range EF Mod BP 48 % [ 52 - 72 ] RONNIE Vmax 2.55 cm2 LA Dimension MM 5.94 cm [ 3.00 - 4.00 ] AV Mean PG 5 mmHg AoR Diam MM 3.83 cm [ 3.10 - 3.70 ] AV Peak Rigo 1.44 m/s [ 1.00 - 1.70 ] ACS MM 2.43 cm [ 1.50 - 2.60 ] AV VTI 26.94 cm LVOT Diam 2.60 cm LVOT Peak Rigo 0.69 m/s [ 0.70 - 1.10 ] LVOT VTI 14.51 cm MV E Peak Rigo 1.07 m/s [ 0.60 - 1.30 ] MV A Peak Rigo 0.22 m/s [ 1.00 - 1.20 ] MV Mean PG 2 mmHg MV PHT 38 msec [ 20 - 100 ] MVA 5.80 MV Decel Time 130 msec [ 104 - 258 ] PV Peak Rigo 0.87 m/s [ 0.40 - 0.80 ] TR Peak Rigo 2.56 m/s [ 1.00 - 2.80 ] TR Peak PG 26 mmHg RVSP 34.00 mmHg [ 10.00 - 36.00 ] E` 0.06 m/s E/E` 17.89 [ <= 10.00 ] PA Pressure 34.00 mmHg [ 10.00 - 36.00 ] 2D/MM Value Range Doppler Value Range - FINDINGS: Atrial Septum: Normal atrial septum. Left Ventricle: Normal left ventricular size. Normal left ventricular wall thickness. Mild global left ventricular systolic dysfunction. Normal left ventricular diastolic function. Ejection fraction is measured at 48 %. There is global hypokinesis involving all segments of the LV. Left Atrium: There is moderate enlargement of left atrium. Right Ventricle: Normal right ventricular size. Normal right ventricular systolic function. Linear artifact in right ventricle suggestive of catheter(s), pacemaker lead(s), or ICD lead(s). Right Atrium: The right atrium is normal in size. Linear artifact in right atrium suggestive of catheter(s), pacemaker lead(s), or ICD lead(s). Aortic Valve: No evidence of hemodynamically significant aortic stenosis by Doppler. Aortic cusps appear mildly sclerotic. Trileaflet aortic valve. Mitral Valve: Mitral valve leaflets appear mildly thickened. Mild mitral annular calcification. Trivial regurgitation of the mitral valve. Pulmonic Valve: Normal structure of the pulmonic valve. No evidence of pulmonic regurgitation. Tricuspid Valve: Normal structure of the tricuspid valve. Normal right ventricular systolic pressure. Trivial regurgitation in the tricuspid valve. Pericardium: Normal pericardium with no significant pericardial effusion. There is an anterior echo free space consistent with epicardial fat pad. Aorta: Ascending aorta is normal. There is mild atherosclerosis in the aortic root. IVC: Dilated IVC without respiratory collapse consistent with elevated right atrial pressure (>15 mmHg). Pulmonary Artery: Pulmonary artery not well visualized. CONCLUSIONS: Technically difficult study with suboptimal visualization. Patient in paced rhythm with atrial fibrillation during this study. Normal left ventricular size. Normal left ventricular wall thickness. Left ventricular systolic function of lower limits of normal. Normal left ventricular diastolic function. Ejection fraction is estimated at 50-55%. Normal right ventricular size. Normal right ventricular systolic function. Linear artifact in right ventricle suggestive of pacemaker lead(s),. There is moderate enlargement of left atrium. Mitral valve leaflets appear mildly thickened. Mild mitral annular calcification. Trivial regurgitation of the mitral valve. No evidence of hemodynamically significant aortic stenosis by Doppler. Aortic cusps appear mildly sclerotic. Trileaflet aortic valve. Normal structure of the tricuspid valve. Normal right ventricular systolic pressure. There is an anterior echo free space consistent with epicardial fat pad. Dilated IVC without respiratory collapse consistent with elevated right atrial pressure (>15 mmHg). Electronically Signed By: Veronica Toussaint MD 2025-06-25 09:37:41 CDT Electronically Amended By: Veronica Toussaint MD 2025-06-25 09:39:31 CDT [ADDENDUM] Electronically Amended By: Aramis Bae MD 06/25/2025 10:11:40 AM CDT [ADDENDUM] Procedure Note Veronica Toussaint MD / Aramis Bae MD - 06/25/[address] [address] Echocardiogram Report ADDENDUM Patient Name: MARK MONGE : 1945 Study Date: 06/25/2025 7:01:51 AM Gender: M Tech: NL Ref Provider: ARAMIS BAE Height(Cm): 188 BSA: 2.6 Weight(Kg): 129.3 Quality: Adequate Order Provider: ARAMIS BAE PROCEDURES: Echocardiographic Report: Transthoracic echocardiogram with complete 2D, M-Mode, and color Dopplerexamination. INDICATIONS: I10 Essential (primary) hypertension and I25.10 Atherosclerotic heartdisease of [place] coronary artery without angina pectoris. MEASUREMENTS: 2D/MM Value Range Doppler ValueRange EF Mod BP 48 % [ 52 - 72 ] RONNIE Vmax 2.55cm2 LA Dimension MM 5.94 cm [ 3.00 - 4.00 ] AV Mean PG 5 mmHg AoR Diam MM 3.83 cm [ 3.10 - 3.70 ] AV Peak Rigo 1.44 m/s[ 1.00 - 1.70 ] ACS MM 2.43 cm [ 1.50 - 2.60 ] AV VTI 26.94cm LVOT Diam 2.60 cm LVOT Peak Rigo 0.69 m/s [ 0.70 - 1.10 ] LVOT VTI 14.51 cm MV E Peak Rigo 1.07 m/s [ 0.60 - 1.30 ] MV A Peak Rigo 0.22 m/s [ 1.00 - 1.20 ] MV Mean PG 2 mmHg MV PHT 38 msec [ 20 - 100 ] MVA 5.80 MV Decel Time 130 msec [ 104 - 258 ] PV Peak Rigo 0.87 m/s [ 0.40 - 0.80 ] TR Peak Rigo 2.56 m/s [ 1.00 - 2.80 ] TR Peak PG 26 mmHg RVSP 34.00 mmHg [ 10.00 - 36.00 ] E` 0.06 m/s E/E` 17.89 [ <= 10.00 ] PA Pressure 34.00 mmHg [ 10.00 - 36.00 ] 2D/MM Value Range Doppler ValueRange - FINDINGS: Atrial Septum: Normal atrial septum. Left Ventricle: Normal left ventricular size. Normal left ventricular wall thickness. Mildglobal left ventricular systolic dysfunction. Normal left ventricular diastolicfunction. Ejection fraction is measured at 48 %. There is global hypokinesis involving allsegments of the LV. Left Atrium: There is moderate enlargement of left atrium. Right Ventricle: Normal right ventricular size. Normal right ventricular systolic function.Linear artifact in right ventricle suggestive of catheter(s), pacemaker lead(s),or ICD lead(s). Right Atrium: The right atrium is normal in size. Linear artifact in right atriumsuggestive of catheter(s), pacemaker lead(s), or ICD lead(s). Aortic Valve: No evidence of hemodynamically significant aortic stenosis by Doppler.Aortic cusps appear mildly sclerotic. Trileaflet aortic valve. Mitral Valve: Mitral valve leaflets appear mildly thickened. Mild mitral annularcalcification. Trivial regurgitation of the mitral valve. Pulmonic Valve: Normal structure of the pulmonic valve. No evidence of pulmonicregurgitation. Tricuspid Valve: Normal structure of the tricuspid valve. Normal right ventricular systolicpressure. Trivial regurgitation in the tricuspid valve. Pericardium: Normal pericardium with no significant pericardial effusion. There is ananterior echo free space consistent with epicardial fat pad. Aorta: Ascending aorta is normal. There is mild atherosclerosis in the aorticroot. IVC: Dilated IVC without respiratory collapse consistent with elevated rightatrial pressure (>15 mmHg). Pulmonary Artery: Pulmonary artery not well visualized. CONCLUSIONS: Technically difficult study with suboptimal visualization. Patient in paced rhythm with atrial fibrillation during this study. Normal left ventricular size. Normal left ventricular wall thickness. Leftventricular systolic function of lower limits of normal. Normal left ventriculardiastolic function. Ejection fraction is estimated at 50-55%. Normal right ventricular size. Normal right ventricular systolic function.Linear artifact in right ventricle suggestive of pacemaker lead(s),. There is moderate enlargement of left atrium. Mitral valve leaflets appear mildly thickened. Mild mitral annularcalcification. Trivial regurgitation of the mitral valve. No evidence of hemodynamically significant aortic stenosis by Doppler.Aortic cusps appear mildly sclerotic. Trileaflet aortic valve. Normal structure of the tricuspid valve. Normal right ventricular systolicpressure. There is an anterior echo free space consistent with epicardial fat pad. Dilated IVC without respiratory collapse consistent with elevated rightatrial pressure (>15 mmHg). Electronically Signed By: Veronica Toussaint MD 2025-06-25 09:37:41 CDT Electronically Amended By: Veronica Toussaint MD 2025-06-25 09:39:31 CDT [ADDENDUM] Electronically Amended By: Aramis Bae MD 06/25/2025 10:11:40 AM CDT [ADDENDUM] us Aramis Bae MD CV ECHO PROCEDURES Edited Resul t - Final * CT Chest WO Contrast (06/24/2025 8:50 AM CDT) Anatomical Region Laterality Modality Body N/A Computed Tomogra phy 07/14/2025 11:1 9 AM CDT Narrative 07/14/2025 11:26 AM CDT EXAM DESCRIPTION: CT CHEST WO CONTRAST REASON FOR STUDY: Aortic aneurysm suspected, Thoracic aneurysm Follow up aortic aneurysm Pacemaker Prev scan done here 06/17/2024 TECHNIQUE: CT scan of the chest performed without intravenous contrast using helical scanning technique. Reconstructed coronal and sagittal MPR images reviewed. All images stored on PACS. Automated exposure control was used as a dose optimization technique for this examination. COMPARISON: CT chest 12/18/2023 FINDINGS: The sensitivity for detection of solid visceral lesions is diminished without the use of intravenous contrast. LUNGS: Patent central airways. Mild bilateral pleural predominant emphysema and mild bronchial/bronchiolar wall thickening greatest in the left lower lobe. There is mild bilateral ground-glass opacities and left basilar atelectasis. No focal consolidation. Stable 6 mm nodule in the right middle lobe (3/75). No suspicious nodules or masses. PLEURA: No effusion. No pneumothorax. MEDIASTINUM/NABIL: No identified masses or abnormal nodes. HEART: Heart size is normal with no pericardial effusion. CORONARY ARTERY CALCIFICATION: Severe VASCULATURE: Atheromatous disease of the aorta with coronary artery calcification. Ascending thoracic aorta measures 4.3 cm, stable AXILLA: No adenopathy. CHEST WALL: No masses. No subcutaneous air. HARDWARE/LINES/TUBES: None. UPPER ABDOMEN: No significant abnormality. MUSCULOSKELETAL: No significant abnormality. OTHER: No other significant abnormality. IMPRESSION: 1. Stable 6 mm nodule in the right middle lobe. No new or suspicious pulmonary nodule. 2. Mild bilateral emphysema and bronchial/bronchiolar wall thickening greatest in the left lower lobe. 3. Stable ascending thoracic aortic aneurysm measuring 4.3 cm. THIS IS AN ELECTRONICALLY VERIFIED FINAL REPORT 07/14/2025 11:26 AM - Electronically signed by Suad Miranda M.D. FT: FT Report ID: [id number] Reading Location: [place] [address] Procedure Note Suad Faustin MD - 07/14/2025 EXAM DESCRIPTION: CT CHEST WO CONTRAST REASON FOR STUDY: Aortic aneurysm suspected, Thoracic aneurysm Follow up aortic aneurysm Pacemaker Prev scan done here 06/17/2024 TECHNIQUE: CT scan of the chest performed without intravenous contrastusing helical scanning technique. Reconstructed coronal and sagittal MPR images reviewed. All images stored on PACS. Automated exposure control was usedas a dose optimization technique for this examination. COMPARISON: CT chest 12/18/2023 FINDINGS: The sensitivity for detection of solid visceral lesions is diminishedwithout the use of intravenous contrast. LUNGS: Patent central airways. Mild bilateral pleural predominantemphysema and mild bronchial/bronchiolar wall thickening greatest in the left lower lobe. There is mild bilateral ground-glass opacities and left basilar atelectasis. No focal consolidation. Stable 6 mm nodule in the rightmiddle lobe (3/75). No suspicious nodules or masses. PLEURA: No effusion. No pneumothorax. MEDIASTINUM/NABIL: No identified masses or abnormal nodes. HEART: Heart size is normal with no pericardial effusion. CORONARY ARTERY CALCIFICATION: Severe VASCULATURE: Atheromatous disease of the aorta with coronary artery calcification. Ascending thoracic aorta measures 4.3 cm, stable AXILLA: No adenopathy. CHEST WALL: No masses. No subcutaneous air. HARDWARE/LINES/TUBES: None. UPPER ABDOMEN: No significant abnormality. MUSCULOSKELETAL: No significant abnormality. OTHER: No other significant abnormality. IMPRESSION: 1. Stable 6 mm nodule in the right middle lobe. No new or suspicious pulmonary nodule. 2. Mild bilateral emphysema and bronchial/bronchiolar wall thickening greatest in the left lower lobe. 3. Stable ascending thoracic aortic aneurysm measuring 4.3 cm. THIS IS AN ELECTRONICALLY VERIFIED FINAL REPORT 07/14/2025 11:26 AM - Electronically signed by Suad Miranda M.D. FT: FT Report ID: [id number] Reading Location: [place] [address] Aramis Bae MD IMG CT PROCEDURES Final Result * CTA Abdominal Aorta And Bilateral Iliofemoral Runoff (02/24/2022 10:22 AM CDT) Anatomical Region Laterality Modality Body Bilateral Computed Tomogra phy 02/24/2022 10:5 8 AM CDT Narrative 02/24/2022 11:13 AM CDT EXAM DESCRIPTION: CTA ABDOMINAL AORTA AND BILATERAL ILIOFEMORAL RUNOFF REASON FOR STUDY: Claudication chronic. Pt c/o pain to bilat ankles when walking, states checking for blockages, pt has had multiple cardiac surgeries including stents and pacemaker, pt previous smoker TECHNIQUE: CTA of the abdominal aorta with bilateral lower extremity runoff was performed without and with intravenous contrast using helical scanning technique. Precontrast and arterial images were obtained of the lower extremities. Images reviewed with soft tissue and bone windows. Reconstructed coronal and sagittal MPR images reviewed. All images stored on PACS. 3D MIP images rendered on scanning unit and reviewed at time of interpretation. Automated exposure control was used as a dose optimization technique for this examination. CONTRAST TYPE/DOSE: 100mL of IOVERSOL 350 MG IODINE/ML INTRAVENOUS SOLUTION injected via intravenous COMPARISON: None available FINDINGS: VASCULATURE: NON-CONTRASTED IMAGING: Extensive vascular calcifications. ABDOMINAL AORTA: No dissection, aneurysm, intramural hematoma, rupture, or penetrating atherosclerotic ulcer. MESENTERIC/RENAL: Celiac axis, superior and inferior mesenteric arteries are patent high-grade stenosis. Right renal artery is duplicated without high-grade stenosis. Left renal artery is single without high-grade stenosis. PELVIC VASCULATURE: Common/external iliac arteries: The right common iliac artery is patent and bifurcates patent right internal iliac artery demonstrating a proximal stenosis. The right external artery is patent with atherosclerotic changes but no high-grade stenosis. Left common iliac artery is patent bifurcates with left internal iliac artery demonstrating a severe proximal stenosis and fusiform aneurysmal dilatation segments measuring up to 1.5 cm. The left external iliac artery demonstrates mild, less than 50% stenosis at its origin and continues patent without additional stenosis. RIGHT LOWER EXTREMITY VASCULATURE: The right common femoral artery is patent and bifurcates with patent profunda femoral artery. The right superficial femoral artery is patent with diffuse calcified plaque but no high-grade stenosis. Popliteal is obscured by metallic artifact from a knee prosthesis but visualized segments are patent without stenosis. The right popliteal trifurcations with 2 vessel distal runoff reaching the ankle via the posterior tibial and peroneal. The anterior tibial occludes in the low calf. LEFT LOWER EXTREMITY VASCULATURE: Left common femoral artery is patent and bifurcates with patent profunda femoral artery. The left superficial femoral artery is patent with diffuse calcified plaque proximally. 50-75% stenosis over 1-2 cm length through the adductor canal. Continuous in-line flow to the popliteal artery is noted without additional stenosis or occlusion. The left popliteal trifurcations with the peroneal and the anterior tibial arteries reaching the ankle. The posterior tibial occludes proximally and reconstitutes distally. ABDOMEN/PELVIS: LOWER CHEST: No significant pulmonary abnormalities. No effusion. LIVER: Normal size. No identified cystic or solid masses. No cysts. GALLBLADDER: Normally distended BILE DUCTS: No intrahepatic or extrahepatic ductal dilatation. SPLEEN: Normal size. No focal lesions. PANCREAS: No identified cystic or solid masses. No significant calcifications. No adjacent inflammation or peripancreatic fluid collections. Pancreatic duct not dilated. ADRENALS: Normal. KIDNEYS/URINARY TRACT: No stone or hydronephrosis. Cortical hypodensities likely related to cysts bilaterally. Normal bladder. GI: No dilated bowel loops. No obvious wall thickening. Normal appendix. No significant diverticular disease. PERITONEUM: No ascites or free air. RETROPERITONEUM: No mass or adenopathy. REPRODUCTIVE: No significant abnormality. MUSCULOSKELETAL: No acute findings. OTHER: No other abnormality. IMPRESSION: Abdominal aorta generally unremarkable without aneurysm or stenosis. The right leg demonstrates no inflow stenosis from the aortoiliac system. The right superficial femoral artery is patent with diffuse calcification but no high-grade stenosis through the popliteal. 2 vessel patent distal runoff vessels via the posterior tibial and peroneal. The left leg demonstrates 50% stenosis of the external iliac artery as evidence of inflow limitation. Additional 50-75% stenosis distal superficial femoral artery through the adductor canal of ir 1-2 cm length. 2 vessel distal runoff via the anterior tibial and peroneal arteries. THIS IS AN ELECTRONICALLY VERIFIED FINAL REPORT 02/24/2022 11:13 AM - Electronically signed by Henrique Wick M.D. RB: JACQUIE Report ID: [id number] Reading Location: [id number] Procedure Note Henrique Wick MD - 02/24/2022 EXAM DESCRIPTION: CTA ABDOMINAL AORTA AND BILATERAL ILIOFEMORAL RUNOFF REASON FOR STUDY: Claudication chronic. Pt c/o pain to bilat ankles when walking, states checking for blockages,pt has had multiple cardiac surgeries including stents and pacemaker, ptprevious smoker TECHNIQUE: CTA of the abdominal aorta with bilateral lower extremityrunoff was performed without and with intravenous contrast using helicalscanning technique. Precontrast and arterial images were obtained of the lower extremities. Images reviewed with soft tissue and bone windows. Reconstructed coronal and sagittal MPR images reviewed. All images storedon PACS. 3D MIP images rendered on scanning unit and reviewed at time of interpretation. Automated exposure control was used as a doseoptimization technique for this examination. CONTRAST TYPE/DOSE: 100mL of IOVERSOL 350 MG IODINE/ML INTRAVENOUSSOLUTION injected via intravenous COMPARISON: None available FINDINGS: VASCULATURE: NON-CONTRASTED IMAGING: Extensive vascular calcifications. ABDOMINAL AORTA: No dissection, aneurysm, intramural hematoma, rupture,or penetrating atherosclerotic ulcer. MESENTERIC/RENAL: Celiac axis, superior and inferior mesenteric arteriesare patent high-grade stenosis. Right renal artery is duplicated without high-grade stenosis. Left renal artery is single without high-grade stenosis. PELVIC VASCULATURE: Common/external iliac arteries: The right common iliac artery is patent and bifurcates patent rightinternal iliac artery demonstrating a proximal stenosis. The right external arteryis patent with atherosclerotic changes but no high-grade stenosis. Left common iliac artery is patent bifurcates with left internal iliacartery demonstrating a severe proximal stenosis and fusiform aneurysmaldilatation segments measuring up to 1.5 cm. The left external iliac arterydemonstrates mild, less than 50% stenosis at its origin and continues patent without additional stenosis. RIGHT LOWER EXTREMITY VASCULATURE: The right common femoral artery is patent and bifurcates with patentprofunda femoral artery. The right superficial femoral artery is patent withdiffuse calcified plaque but no high-grade stenosis. Popliteal is obscured by metallic artifact from a knee prosthesis but visualized segments arepatent without stenosis. The right popliteal trifurcations with 2 vessel distal runoff reaching the ankle via the posterior tibial and peroneal. Theanterior tibial occludes in the low calf. LEFT LOWER EXTREMITY VASCULATURE: Left common femoral artery is patent and bifurcates with patent profunda femoral artery. The left superficial femoral artery is patent withdiffuse calcified plaque proximally. 50-75% stenosis over 1-2 cm length throughthe adductor canal. Continuous in-line flow to the popliteal artery is noted without additional stenosis or occlusion. The left poplitealtrifurcations with the peroneal and the anterior tibial arteries reaching the ankle.The posterior tibial occludes proximally and reconstitutes distally. ABDOMEN/PELVIS: LOWER CHEST: No significant pulmonary abnormalities. No effusion. LIVER: Normal size. No identified cystic or solid masses. No cysts. GALLBLADDER: Normally distended BILE DUCTS: No intrahepatic or extrahepatic ductal dilatation. SPLEEN: Normal size. No focal lesions. PANCREAS: No identified cystic or solid masses. No significant calcifications. No adjacent inflammation or peripancreatic fluidcollections. Pancreatic duct not dilated. ADRENALS: Normal. KIDNEYS/URINARY TRACT: No stone or hydronephrosis. Corticalhypodensities likely related to cysts bilaterally. Normal bladder. GI: No dilated bowel loops. No obvious wall thickening. Normalappendix. No significant diverticular disease. PERITONEUM: No ascites or free air. RETROPERITONEUM: No mass or adenopathy. REPRODUCTIVE: No significant abnormality. MUSCULOSKELETAL: No acute findings. OTHER: No other abnormality. IMPRESSION: Abdominal aorta generally unremarkable without aneurysm or stenosis. The right leg demonstrates no inflow stenosis from the aortoiliac system.The right superficial femoral artery is patent with diffuse calcification butno high-grade stenosis through the popliteal. 2 vessel patent distal runoff vessels via the posterior tibial and peroneal. The left leg demonstrates 50% stenosis of the external iliac artery as evidence of inflow limitation. Additional 50-75% stenosis distalsuperficial femoral artery through the adductor canal of ir 1-2 cm length. 2 vessel distal runoff via the anterior tibial and peroneal arteries. THIS IS AN ELECTRONICALLY VERIFIED FINAL REPORT 02/24/2022 11:13 AM - Electronically signed by Henrique Wick M.D. RB: JACQUIE Report ID: [id number] Reading Location: [place] [address] Aramis Bae MD IMG CT PROCEDURES Final Result from Last 3 Months or Most Recently Relevant to Health Maintenance Insurance MEDICARE FORMERLY [facility] MEDICARE FORMERLY [facility] MEDICARE [employer] MEDICARE SUPPLEMENT Advance Directives For more information, please contact: [phone] * Full Code (Latest Code Status on File) Date Activated Date Inactivated Comments 07/16/2020 4:21 PM 07/17/2020 3:21 PM Care Teams Rn Case Mgr Relationship Specialty Start Date End Date Denys La MD [address] [address] PCP - General Family Medicine 09/01/20
--- OUTSIDE RECORDS SUMMARY | 2025-09-24 13:08 | XMS_ITS | Encounter Summary ---
Author Organization [facility] Address [address] [place] [address] Phone Care Team Providers Care Sales Operations Specialist Name Role Phone Olaf To Oscar DPM Unavailable [phone] Denys La MD Primary Care Provider [phone] Aramis Bae MD Unavailable Kun Renteria MD Unavailable [phone] Nurse, [place] Antoine Coag Unavailable Unavailab Nga Santana APRN, MEDICAL TECHNOLOGIST PRN Unavailable [phone] Allyssa Michele RN Unavailable Unavailable Allyssa Michele RN Unavailable Unavailable Reason for Visit * Reason Comments Medication Refill Encounter Details Date Type Department Care Team (Late st Contact Info) Description 11/25/2023 Refill [facility] [address] [place] [address] Denys La MD [address] [address] Medication Refill Social History Tobacco Use Types [...] encounter Miscellaneous Notes * Telephone Encounter - Mis Farmer RN - 11/26/2023 11:55 AM AUDIENCE DEVELOPMENT MANAGER [facility] is managing his anti-coag visits - last visit with them was 11-23-23. ReviewedMEDD - last prescribed by you on 07-24-23 Medication failed the protocol, provider to review and approve the medication order if appropriate. Requested Prescriptions Pending Prescriptions Disp Refills warfarin (COUMADIN) 7.5 MG Tablet [Pharmacy Med Name: Warfarin Sodium 7.5 MG Oral Tablet] 90 Tablet0 Sig: Take 1 tablet by mouth once daily Warfarin Protocol Failed - 11/25/2023 9:19 AM Failed - INR on record in the past 6 weeks INR Date Value Ref Range Status 04/17/2023 2.6 (H) 0.9 - 1.2 Final Comment: Therapeutic Ranges INR = 2.0-3.0: Venous thromb, atrial fib, pul embolism, tissue heart valve, ami. INR = 2.5-3.5: Mechanical heart valve Critical value for INR is >/= 4.5 03/25/2022 2.1 (A) 0.9 - 1.1 Final Passed - CBC on record in the past year WBC Date Value Ref Range Status 2023 8.59 4.00 - 12.00 10(3)/mcL Final WBC ESTERASE Date Value Ref Range Status 03/23/2021 Negative Negative Final RBC Date Value Ref Range Status 2023 4.69 4.40 - 5.80 10(6)/mcL Final HEMATOCRIT (HCT) Date Value Ref Range Status 2023 43.5 38.0 - 50.0 % Final HEMOGLOBIN (HGB) Date Value Ref Range Status 2023 14.5 13.0 - 16.5 g/dL Final MCV Date Value Ref Range Status 2023 92.8 82.0 - 96.0 fL Final MCH Date Value Ref Range Status 2023 30.9 26.0 - 32.0 pg Final MCHC Date Value Ref Range Status 2023 33.3 31.0 - 36.0 g/dL Final Passed - Visit with relevant provider in past 12 months or upcoming 90 days Recent Visits Date Type Provider Dept 09/21/23 Office Visit Denys La MD [facility] 06/08/23 Office Visit Denys La MD [facility] 05/23/23 Office Visit Shelly Coffey [facility]N, [facility] [place] 05/18/23 Office Visit Cornelius Riddle APRN, SARAH [facility] 05/15/23 Office Visit Cornelius Riddle APRN, SARAH [facility] 02/23/23 Office Visit Denys La MD [facility] Showing recent visits within past 365 days and meeting all other requirements Future Appointments Date Type Provider Dept 01/04/24 Appointment Denys La MD [facility] Showing future appointments within next 90 days and meeting all other requirements Passed - Patient has referral for nurse managed warfarin, please send to nurse- managed anticoag clinic Orders placed or performed in visit on 02/17/23 (from the past 67617 hour(s)) ANTICOAGULATION MONITORING REFERRAL Orders placed or performed in visit on 02/18/22 (from the past 82049 hour(s)) ANTICOAGULATION MONITORING REFERRAL Passed - Display Most Recent Dose (if blank, no data is available, check Anticoagulation activity) ENCE DEVELOPMENT MANAGER documented in this encounter Plan of Treatment Upcoming Encounters Date Type Department Care Team (Late st Contact Info) Description 09/26/2025 7:45 AM CDT Office Visit [facility] - Family Medicine - [place] [address] [place] [address] Cornelius Riddle APRN, MEDICAL TECHNOLOGIST PRN [id number] [address] 05/19/2026 9:00 AM CDT Office Visit [facility] - Pulmonology & Sleep Medicine [facility] [address] [facility] [place] [id number] Nga Caba APRN, MEDICAL TECHNOLOGIST PRN [address] [facility] [address] [place] [address] documented as of this encounter Visit Diagnoses Not on filedocumented in this encounter Additional Health Concerns Infection Onset Date Last Indicated Resolved Time Respiratory Rule-Out 11/29/2024 11/29/2024 025 10:21 AM AUDIENCE DEVELOPMENT MANAGER COVID - 19 11/29/2024 11/29/2024 11/29/2024 10:2 1 AM AUDIENCE DEVELOPMENT MANAGER Respiratory Rule-Out 03/04/2025 03/04/2025 025 10:13 AM CDT Assessment Noted Time PHQ-9 Depression Total Score: 0 08/18/20 21 10:25 AM CDT documented as of this encounter Care Teams Sales Operations Specialist Relationship Specialty Start Date End Date Denys La MD [address] [facility] [address] [place] [address] PCP - General Family Medicine 11/21/17 Olaf To DPM Podiatry 03/28/16 Aramis Bae MD [address]2 [facility] [address] [place] [address] Consulting Physician Interventional Cardiology 09/23/20 Kun Renteria MD [address]2 [facility] [address] [place] [phone] General Surgery 10/26/20 [facility] Anti Coag ID 02/19/21 Nga Caba, STRIPPER OPAQUER, MEDICAL TECHNOLOGIST PRN [address] [place] [address] [place] [id number] Nurse Practitioner Advanced Practice Nurse 03/21/22 Allyssa Michele RN [place] Nurse Meteorology Teacher 06/04/24 06/04/24 Allyssa Michele RN [place] Nurse Meteorology Teacher 03/26/25 04/04/25 documented as of this encounter
--- OUTSIDE RECORDS SUMMARY | 2025-09-24 13:08 | XMS_ITS | Encounter Summary ---
Author Organization [facility] Address [address] [place] [id number] Care Team Providers Care Outside Sales Advertising Executive Name Role Phone Denys La MD Primary Care Provider [phone] Encounter Details Date Type Department Care Team (Late st Contact Info) Description 09/23/2025 Telephone [place] [facility] Mortiser Operator at [address] [place] [address] Aramis Bae MD [address] [place] [address] [address] [place] [address] Social History Tobacco Use Types Packs/Day Years [...] on file Legal Sex Male 5:32 PM RUBBERIZING MECHANIC Gender Identity Male 12/15/2020 8:24 AM RUBBERIZING MECHANIC Sexual Orientation Straight 12/15/2020 8: 24 AM RUBBERIZING MECHANIC documented as of this encounter Miscellaneous Notes * Telephone Encounter - Salome Humphrey MA - 09/23/2025 8:39 AM CDT Patient states that patient is having a knee replacement in December with Dr. Calvillo, they want to know if patient needs to come see you prior to his surgery. Patient's next appointment with you is June of 2026 documented in this encounter Plan of Treatment Not on file documented as of this encounter Visit Diagnoses Not on filedocumented in this encounter Care Teams Outside Sales Advertising Executive Relationship Specialty Start Date End Date Denys La MD [address] [place] [address] PCP - General Family Medicine 09/01/20 documented as of this encounter
--- OUTSIDE RECORDS SUMMARY | 2025-09-24 13:08 | XMS_ITS | Encounter Summary ---
Author Organization [facility] Address [address] [place] [address] Phone Care Team Providers Care Diesel Technician Mechanic Name Role Phone Olaf To Oscar DPM Unavailable [phone] Denys La MD Primary Care Provider [phone] Aramis Bae MD Unavailable Kun Renteria MD Unavailable [phone] Nurse, Rajendra Antoine Coag Unavailable Unavailab Madeline Ferrera RN Unavailable UnavailAnnita Orozco RN Unavailable Unavailable Allyssa Michele RN Unavailable Unavailable Nga Caba APRN, CLOSING AGENT Unavailable [phone] Allyssa Michele RN Unavailable Unavailable Allyssa Michele RN Unavailable Unavailable Reason for Visit * Reason Comments Medication Refill vitamin D Encounter Details Date Type Department Care Team (Late st Contact Info) Description 02/10/2021 Refill [facility] - Family Medicine - [place] [address]2 [place] [address] Denys La MD #[address] [address] Medication Refill (vitamin D) Social History Tobacco Use Types Packs/Day Years [...] have Coronavirus / COVID-19? No / Unsure 02/08/2021 7:58 AM CDT documented as of this encounter Miscellaneous Notes * Telephone Encounter - Padmini Sierra - 02/10/2021 4:00 PM CDT LAST OFFICE VISIT: 01/20/2021 LAST REFILL:02/09/21 LAST LAB: Lab Results Component Value Date VTMD 31 02/08/2021 NEXT OFFICE VISIT: 05/03/2021 Order pended for your review. Thanks! Requested Prescriptions Pending Prescriptions Disp Refills ??? ergocalciferol (VITAMIN D) 59529 UNIT Capsule [Pharmacy Med Name: Vitamin D (Ergocalciferol) 1.25 MG (00495 UT) Oral Capsule] 12 Capsule 0 Sig: Take 1 capsule by mouth once a week documented in this encounter Plan of Treatment Upcoming Encounters Date Type Department Care Team (Late st Contact Info) Description 09/26/2025 7:45 AM CDT Office Visit [facility] - Family Medicine - [place] [address] [place] [address] Cornelius Riddle APRN, CLOSING AGENT #[address] [address] 05/19/2026 9:00 AM CDT Office Visit [facility] - Pulmonology & Sleep Medicine - [place] [address] [place] [address] Nga Caba APRN, CLOSING AGENT #2 [facility] [address] [place] [address] documented as of this encounter Visit Diagnoses Not on filedocumented in this encounter Additional Health Concerns Infection Onset Date Last Indicated Resolved Time COVID - 19 10/26/2021 10/26/2021 11/15/2021 12:1 6 AM DRUG SAFETY PHYSICIAN COVID - 19 Confirmed 10/26/2021 10/26/2021 021 12:16 AM DRUG SAFETY PHYSICIAN Respiratory Rule-Out 11/29/2024 11/29/2024 025 10:21 AM DRUG SAFETY PHYSICIAN COVID - 19 11/29/2024 11/29/2024 11/29/2024 10:2 1 AM DRUG SAFETY PHYSICIAN Respiratory Rule-Out 03/04/2025 03/04/2025 025 10:13 AM CDT Assessment Noted Time PHQ-9 Depression Total Score: 0 12/03/19 20 3:00 PM DRUG SAFETY PHYSICIAN documented as of this encounter Care Teams Diesel Technician Mechanic Relationship Specialty Start Date End Date Denys La MD #2 [facility] [address] [place] [address] PCP - General Family Medicine 11/21/17 Olaf To DPM Podiatry 03/28/16 Aramis Bae MD #2 [facility] [address] [place] [address] Consulting Physician Interventional Cardiology 09/23/20 Kun Renteria MD #2 [facility] [address] [place] [id number] General Surgery 10/26/20 NurseRajendra Anti [facility] 02/19/21 Madeline Friedman, VIOLETA [place] Spotter Driver 05/03/21 05/23/21 Annita Birch, VIOLETA [place] Spotter Driver 05/24/21 08/08/21 Allyssa Michele RN [place] Spotter Driver 08/09/21 10/08/23 Nga Caba, CHRISTMAS TREE CONTRACTOR, CLOSING AGENT #[address] [address] Nurse Practitioner Advanced Practice Nurse 03/21/22 Allyssa Michele, RN [place] Nurse Spotter Driver 06/04/24 06/04/24 Allyssa Michele, RN [place] Nurse Spotter Driver 03/26/25 04/04/25 documented as of this encounter
--- OUTSIDE RECORDS SUMMARY | 2025-09-24 13:08 | XMS_ITS | Clinical Summary ---
Author Organization [facility] Address [address] [place] [address] Care Team Providers Care Office Nurse Practitioner Name Role Phone Denys La MD Primary Care Provider [phone] Allergies No known active allergies Medications No known medications Social History Tobacco Use Types Packs/Day Years Used Date Smoking Tobacco: Never Smokeless Tobacco: Never Sex and Gender Information Value Date Recorded Sex Assigned at Not on file Legal Sex Male 4:03 PM CDT Gender Identity Not on file Sexual Orientation Not on file Last Filed Vital Signs Vital Sign Reading Time Taken Comments Blood Pressure 110/73 03/22/2022 7:27 PM CDT Pulse 74 03/22/2022 7:27 PM CDT Temperature 36.7 C (98 F) 03/22/2022 7:27 PM CDT Respiratory Rate 18 03/22/2022 7:27 PM CDT Oxygen Saturation 95% 03/22/2022 7:27 PM CDT Inhaled Oxygen Concentration - - Weight 134.3 kg (296 lb) 03/22/2022 7:27 PM CDT Height 190.5 cm (6' 3) 03/22/2022 7:27 PM CDT Body Mass Index 37 03/22/2022 7:27 PM CDT Plan of Treatment Health Maintenance Due Date Last Done Comments Zoster Vaccines (1 of 2) 1995 Annual Medicare Wellness Visit 2010 RSV Immunization or 60+ Years (1 - 1-dose 75+ series) 2020 DTaP, Tdap and Td Vaccines (2 - Tdap) 07/13/2025 07/13/2015 COVID-19 Vaccine ( season) 2025 08/24/2021, 01/26/2021, 12/29/2020 Influenza Adult (#1) 2025 07/29/2021, 07/29/2020, 09/12/2019, Additional history exists Pneumococcal Vaccine: 50+ Years Completed 07/29/2020, 09/05/2016, 08/08/2011 Hepatitis A Vaccines Aged Out No long er eligible based on patient's age to complete this topic Meningococcal B Vaccine Aged Out No l onger eligible based on patient's age to complete this topic Meningococcal Vaccine Aged Out No reynaldo cally eligible based on patient's age to complete this topic RSV Immunizations Under 20 Months Aged Out No longer eligible based on patient's age to complete this topic Insurance MEDICARE [facility] Care Teams Office Nurse Practitioner Relationship Specialty Start Date End Date Denys La MD PCP - General FAMILY PRACTICE 03/22/22
--- OUTSIDE RECORDS SUMMARY | 2025-09-24 13:08 | XMS_ITS | Encounter Summary ---
Author Organization [facility] Address [address] [place] [address] Phone Care Team Providers Care Deputy K 9 Name Role Phone Olaf To DPM Unavailable [phone] Denys La MD Primary Care Provider [phone] Aramis Bae MD Unavailable Kun Renteria MD Unavailable [phone] Nurse, Rajendra Antoine Coag Unavailable Unavailab Allyssa Kay RN Unavailable Unavailable Nga Caba APRN, CNP Unavailable [phone] Allyssa Michele RN Unavailable Unavailable Allyssa Michele RN Unavailable Unavailable Reason for Visit * Reason Comments Medication Refill Encounter Details Date Type Department Care Team (Late st Contact Info) Description 07/09/2023 Refill [facility] - Family Medicine [facility] #2 [place] [address] Denys La MD #[address] [address] Medication Refill Social History Tobacco Use Types [...] Telephone Encounter - Mis Farmer RN - 07/09/2023 12:47 PM CDT Script says take 1 tablet by mouth twice daily and patient reported to Jessica Yuen RN On: 03/13/2023 that he takes 25mg Per nursing clinical judgement, provider to review and approve the medication(s) order(s) if appropriate. Requested Prescriptions Pending Prescriptions Disp Refills lisinopril (PRINIVIL, ZESTRIL) 20 MG Tablet [Pharmacy Med Name: Lisinopril 20 MG Oral Tablet] 180 Tablet 0 Sig: Take 1 tablet by mouth twice daily VIRI Inhibitors Protocol Passed - 07/09/2023 12:41 PM Passed - Serum potassium on record in past 12 months POTASSIUM Date Value Ref Range Status 2023 3.9 3.5 - 5.1 mmol/L Final Passed - Blood pressure on record in past 12 months Clinician-entered: BP Readings from Last 3 Encounters: 06/08/23 122/70 05/23/23 144/82 05/18/23 104/60 Patient-entered: No data recorded Passed - Visit with relevant provider in past 12 months or upcoming 90 days Recent Visits Date Type Provider Dept 06/08/23 Office Visit Denys La MD [facility] 05/23/23 Office Visit Shelly Coffey APRN, [facility] 05/18/23 Office Visit Cornelius Riddle APRN, [facility] 05/15/23 Office Visit Cornelius Riddle APRN, [facility] 02/23/23 Office Visit Denys La MD [facility] 11/17/22 Office Visit MohyDenys ballesteros MD [facility] 08/15/22 Office Visit Denys La MD [facility] Showing recent visits within past 365 days and meeting all other requirements Future Appointments Date Type Provider Dept 09/14/23 Appointment Denys La MD [facility] Showing future appointments within next 90 days and meeting all other requirements Passed - GFR on record in past 12 months GFR, EST. NONAFRICAN Date Value Ref Range Status 2023 >60 >=60 Final documented in this encounter Plan of Treatment Upcoming Encounters Date Type Department Care Team (Late st Contact Info) Description 09/26/2025 7:45 AM CDT Office Visit [facility] Medical [facility] - Family Medicine - [place] #2 [place] [address] Cornelius Riddle APRN, CLINICAL LAB CLERK #2 [facility] [address] [place] [address] 05/19/2026 9:00 AM CDT Office Visit [facility] Medical [facility] - Pulmonology & Sleep Medicine - [place] [address]2 [place] [address] Nga Caba APRN, CLINICAL LAB CLERK #2 [facility] [address] [place] [address] documented as of this encounter Visit Diagnoses Not on filedocumented in this encounter Additional Health Concerns Infection Onset Date Last Indicated Resolved Time Respiratory Rule-Out 11/29/2024 11/29/2024 025 10:21 AM TELESERVICES REPRESENTATIVE COVID - 19 11/29/2024 11/29/2024 11/29/2024 10:2 1 AM TELESERVICES REPRESENTATIVE Respiratory Rule-Out 03/04/2025 03/04/2025 025 10:13 AM CDT Assessment Noted Time PHQ-9 Depression Total Score: 0 08/18/20 10:25 AM CDT documented as of this encounter Care Teams Deputy K 9 Relationship Specialty Start Date End Date Denys La MD #2 [facility] [address] [place] [address] PCP - General Family Medicine 11/21/17 Olaf To DPM Podiatry 03/28/16 Aramis Bae MD #2 [facility] [address] [place] [address] Consulting Physician Interventional Cardiology 09/23/20 Kun Renteria MD #2 [facility] [address] [place] [address] General Surgery 10/26/20 NurseRajendra Anti Coag [place] 02/19/21 Allyssa Michele, RN [place] Bee Rancher 08/09/21 10/08/23 Nga Caba APRN, CLINICAL LAB CLERK #2 [facility] [address] [place] [address] Nurse Practitioner Advanced Practice Nurse 03/21/22 Allyssa Michele, RN [place] Nurse Bee Rancher 06/04/24 06/04/24 Allyssa Michele, RN [place] Nurse Bee Rancher 03/26/25 04/04/25 documented as of this encounter
--- OUTSIDE RECORDS SUMMARY | 2025-09-24 13:08 | XMS_ITS | Encounter Summary ---
Author Organization [facility] Address [address] [place] [address] Phone Care Team Providers Care Mine Laborer Name Role Phone Olaf To Oscar DPM Unavailable [phone] Denys La MD Primary Care Provider [phone] Aramis Bae MD Unavailable Kun Renteria MD Unavailable [phone] Nurse, Rajendra Antoine Coag Unavailable Unavailab Nga Santana APRN, DICTATING TRANSCRIBING MACHINE SERVICER Unavailable [phone] Allyssa Michele RN Unavailable Unavailable Allyssa Michele RN Unavailable Unavailable Reason for Visit * Reason Comments Medication Refill Encounter Details Date Type Department Care Team (Late st Contact Info) Description 03/23/2024 Refill [facility] - Family Medicine [facility] #2 [place] [address] Denys La MD #[address] [address] Medication Refill Social History Tobacco Use Types Packs/Day Years Used Date Smoking Tobacco: Former Cigarettes 1 Q uit: 03/15/2005 Cigars Smokeless Tobacco: Never Alcohol Use Standard Drinks/Week Comments Yes 0 (1 standard drink = 0.6 oz pur e alcohol) rare [facility] Utilities Answer Date Recorded In the past 12 months has e [employer], gas, oil, or water Saav[employer] threatened to shut off services in your home? Patient declined 01/04/2024 Social Connection and Isolation Panel Answer Date Recorded In a typical week, how many times do you talk on the phone with family, friends, or neighbors? Patient declined 01/04/2024 How often do you get togethe r with friends or relatives? Patient declined 01/04/2024 How often do you attend sikh or samaritan serv ices? Patient declined 01/04/2024 Do you belong to any clubs o r organizations such as sikh groups, unions, fraternal or athletic groups, or [...] Answer Date Recorded PHQ-2 Score 0 07/26/2019 [facility] - [...] place to sleep or slept in a assisted (including now)? Patient declined 01/04/2024 Education Answer [...] Telephone Encounter - Diya Brown RN - 03/25/2024 8:51 AM CDT Medication(s) refilled and signed per [facility] Chronic Medication Refill Standing Order for Pediatricand Adult Patients. Requested Prescriptions Pending Prescriptions Disp Refills lisinopril (PRINIVIL, ZESTRIL) 20 MG Tablet [Pharmacy Med Name: Lisinopril 20 MG Oral Tablet] 180 Tablet 1 Sig: Take 1 tablet by mouth twice daily VIRI Inhibitors Protocol Passed - 03/23/2024 6:52 AM Passed - Serum potassium on record in past 12 months POTASSIUM Date Value Ref Range Status 2023 3.9 3.5 - 5.1 mmol/L Final Passed - Blood pressure on record in past 12 months Clinician-entered: BP Readings from Last 3 Encounters: 01/04/24 144/80 09/21/23 126/68 09/19/23 130/70 Patient-entered: No data recorded Passed - Visit with relevant provider in past 12 months or upcoming 90 days Recent Visits Date Type Provider Dept 01/04/24 Office Visit Denys La MD [facility] 09/21/23 Office Visit Denys La MD [facility] 06/08/23 Office Visit Denys La MD [facility] 05/23/23 Office Visit Shelly oCffey APRN, [facility] 05/18/23 Office Visit Cornelius Riddle APRN, [facility] 05/15/23 Office Visit Cornelius Riddle APRN, [facility] Showing recent visits within past 365 days and meeting all other requirements Future Appointments Date Type Provider Dept 04/17/24 Appointment Denys La MD [facility] Showing [...] Description 09/26/2025 7:45 AM CDT Office Visit [facility] Medical [facility] - Family Medicine - [place] [address] [place] [address] Cornelius Riddle APRN, SARAH #2 [facility] [address] [place] [address] 05/19/2026 9:00 AM CDT Office Visit [facility] Medical [facility] - Pulmonology & Sleep Medicine - [place] #2 [place] [phone] Nga Caba APRN, DICTATING TRANSCRIBING MACHINE SERVICER #2 [facility] [address] [place] [address] documented as of this encounter Visit Diagnoses Not on filedocumented in this encounter Additional Health Concerns Infection Onset Date Last Indicated Resolved Time Respiratory Rule-Out 11/29/2024 11/29/2024 025 10:21 AM LENS MOLDING EQUIPMENT OPERATOR COVID - 19 11/29/2024 11/29/2024 11/29/2024 10:2 1 AM LENS MOLDING EQUIPMENT OPERATOR Respiratory Rule-Out 03/04/2025 03/04/2025 025 10:13 AM CDT Assessment Noted Time PHQ-9 Depression Total Score: 0 08/18/20 10:25 AM CDT documented as of this encounter Care Teams Mine Laborer Relationship Specialty Start Date End Date Denys La MD #2 [facility] [address] [place] [address] PCP - General Family Medicine 11/21/17 Olaf To DPM Podiatry 03/28/16 Aramis Bae MD #2 [facility] [address] [place] [address] Consulting Physician Interventional Cardiology 09/23/20 Kun Renteria MD #2 [facility] [address] [place] [address] General Surgery 10/26/20 NurseRajendra Anti Coag [place] 02/19/21 Nga Caba APRN, DICTATING TRANSCRIBING MACHINE SERVICER #2 [facility] [address] [place] [address] Nurse Practitioner Advanced Practice Nurse 03/21/22 Allyssa Michele RN [place] Nurse Application Support Consultant 06/04/24 06/04/24 Allyssa Michele RN [place] Nurse Application Support Consultant 03/26/25 04/04/25 documented as of this encounter
--- OUTSIDE RECORDS SUMMARY | 2025-09-24 13:08 | XMS_ITS | Clinical Summary ---
Author Organization [facility] Address [address] [place] [address] Phone Care Team Providers Care Lot Associate Name Role Phone Olaf To Oscar DPM Unavailable [phone] Denys La MD Primary Care Provider [phone] Aramis Bae MD Unavailable Kun Renteria MD Unavailable Nurse, Rajendra Anti Coag Unavailable Unavailab Nga Santana APRN, MILL CONTROLLER Unavailable [phone] Allergies No known active allergies Medications Blood Glucose Monitoring Suppl DeviceIndicatio ns:Type 2 diabetes mellitus without complication, without long-term current use of insulin Diagnosis: Diabetes type 2 Blood testing frequency: once daily E11.59 1 Each 1 Active rosuvastatin (CRESTOR) 20 MG Tablet Take 20 mg by mouth nightly. 2 Active furosemide (LASIX) 20 MG Tablet TAKE 1 TABLET BY MOUTH ONCE DAILY 2 Active Cholecalciferol (VITAMIN D-3 PO) Take 25 mcg by mouth nightly. Active ASPIRIN PO Take 81 mg by mouth daily. Active Lancets MiscIndications :Type 2 diabetes mellitus without complication, without long-term current use of insulin Use to test blood glucose once daily as directed. 100 Lancet 3 3 Active warfarin (COUMADIN) 7.5 MG Tablet Take 1 tablet by mouth once daily 90 Tablet 4 Active albuterol 108 (90 Base) MCG/ACT Aerosol Solution take 1-2 Puffs by inhalation every 6 hours as needed for Cough. 18 g 4 Active lisinopril (PRINIVIL, ZESTRIL) 20 MG Tablet Take 1 tablet by mouth twice daily 180 Tablet 1 4 Active Glucose Blood (OneTouch Verio) StripIndication s: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 USE TO CHECK BLOOD SUGAR DAILY 100 Strip 2 5 Active tamsulosin (FLOMAX) 0.4 MG Capsule Take 1 capsule by mouth once daily in the morning 90 Capsule 1 5 Active glimepiride (AMARYL) 2 MG Tablet Take 1 tablet by mouth once daily with breakfast 90 Tablet 1 5 Active Active Problems Problem Noted Date Diagnosed Date Cough 03/04/2025 Dizziness 03/04/2025 Runny nose 03/04/2025 Left hand pain 11/21/2024 Bunionette of left foot 10/30/2024 Chronic foot pain, left 10/21/2024 Preoperative testing 10/21/2024 Skin lesion 09/21/2023 On warfarin therapy 09/21/2023 History of BPH 09/21/2023 Warfarin-induced coagulopathy 08/21/2023 Benign prostatic hyperplasia without lower urinary tract symptoms 06/08/2023 Chronic anticoagulation 11/17/2022 Obesity (BMI 30-39.9) 08/15/2022 Personal history of tobacco use 09/20/2021 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 08/07/2020 Bilateral leg edema 08/07/2020 History of coronary artery stent placement 08/07 Generalized abdominal pain 12/30/2019 Hematuria, gross 06/24/2019 Irritable bowel syndrome with diarrhea 9 Chronic diarrhea 2019 Class 2 severe obesity due t o excess calories with serious comorbidity and body mass index (BMI) of 35.0 to 35.9 in adult 03/18/2019 Bradycardia 12/18/[address] 10/27/2018 Traumatic hematoma of foot, right, initial encou nter 05/28/2018 Pain in right foot 05/24/2018 Sprain of right foot 05/17/2018 Bruising 05/17/2018 Aneurysm of ascending aorta 01/30/2018 Pulmonary emphysema 01/30/2018 Right middle lobe pulmonary nodule 01/30/2018 Gynecomastia, male 01/30/2018 RASHMI (obstructive sleep apnea) 01/29/2018 Non morbid obesity 01/29/2018 Vitamin D deficiency 01/21/2018 Anticoagulated on Coumadin 11/30/2017 Diabetic polyneuropathy asso ciated with type 2 diabetes mellitus 11/09/2015 Corns Dermatophytosis, nail Diabetes mellitus with peripheral circulatory di sorder Foreign body of foot, superficial Overview (09/24/2015): Superficial injury of foot (foreign body) Squamous cell carcinoma of skin Overview (09/24/2015): Skin neoplasm upper extremities Diabetes mellitus Hyperlipidemia Coronary artery disease High blood pressure Atrial fibrillation Resolved Problems Problem Noted Date Diagnosed Date Resolved Date Pulmonary hypertension 05/11/202003/21 Encounters Date Type Department Care Team Description 08/21/2025 Travel 07/08/2025 9:45 AM CDT Office Visit [facility] [address] [place] [address] Denys La MD Chronic anticoagulation (Primary Dx); Encounter for diabetic foot exam (HCC); Hyperlipidemia, unspecified hyperlipidemia type Discharge Disposition: Discharged to home or Selfcare 07/08/2025 Travel from Last 3 Months Immunizations Immunization Administration Dates Next Due COVID-19, Mrna, Lnp-s, Pf, 5 0 mcg/0.5 mL 08/18/2023 Covid-19, Mrna, Lnp-s, PF, 1 00 mcg/0.5 mL Dose (Moderna) 08/24/2021,01/26/2021,12/29/2020 DTAP VACCINE 07/13/2015 Influenza Vaccine 07/29/2021 Influenza Vaccine greater than 3 yrs 07/29/2020, 08/28/2017 Influenza Vaccine, Quadrivalent, PF 08/15/2022,1 ,08/21/2018 Influenza, High-dose, Quadrivalent 08/18/2023 Influenza, high-dose, trivalent, PF 12/2019,08/28/2017,09/05/2016,2014 PUR FLU HIGH DOSE (FLUZONE) 09/05/2016 PUR PCV-13 09/05/2016 Pneumococcal Vaccine - 13 Valent 07/29/2020,08/27 Pneumococcal Vaccine Adult - 23 Valent 08/08/2011 Zoster Vaccine Recombinant 07/08/2025 Family History Medical History Relation Name Comments No Known Problems Daughter Cancer Father Winsome lung, brain, Chronic Obstructive Pulmonary Disease Mother Aneurysm Paternal Grandfather Cancer Sister 1 Breast Cancer Sister 2 Lung No Known Problems Son 1 No Known Problems Son 2 Relation Name Status Comments Daughter Alive Father Winsome Maternal Grandfather Maternal Grandmother Mother Paternal Grandfather Paternal Grandmother Sister 1 Alive Sister 2 Alive Son 1 Alive Son 2 Alive Social History Tobacco Use Types Packs/Day Years Used Date Smoking Tobacco: Former Cigarettes 1 Q uit: 03/15/2005 Cigars Smokeless Tobacco: Never Tobacco Cessation:Counseling Given: Yes Alcohol Use Standard Drinks/Week Comments Not Currently 2 (1 standard drink = 0.6 oz pur e alcohol) rare [employer] Utilities Answer Date Recorded In the past 12 months has [employer], gas, oil, or water [employer] threatened to shut off services in your home? No 04/03/2025 Social Connection and Isolation Panel Answer Date Recorded In a typical week, how many times do you talk on the phone with family, friends, or neighbors? Three times a week 04/03/2025 How often do you get togethe r with friends or relatives? Twice a week 04/03/2025 How often do you attend formerly [facility] or voodoo services? Never 04/03/2025 Do you belong to any clubs o r organizations such as christian groups, unions, fraternal or athletic groups, or school groups? No 04/03/2025 How often do you attend meet ings of the clubs or organizations you belong to? Never 04/03/2025 Are you , , di vorced, , never , or living with a partner? 04/03/2025 AUDIT-C Answer Date Recorded Q1: How often do you have a drink containing alcohol? Never 04/03/2025 Q2: How many drinks containi ng alcohol do you have on a typical day when you are drinking? Patient does not drink Q3: How often do you have si x or more drinks on one occasion? Never 04/03/2025 Overall Financial Resource Strain (CARDIA) Answe r Date Recorded How hard is it for you to pa y for the very basics like food, housing, medical care, and heating? Not hard at all 04/03/2025 PHQ-2 Answer Date Recorded Total Score - Questions 1-9 0 06/2025 [facility] - Occupational Stress Questionnaire Answer Date Recorded Do you feel stress - tense, restless, nervous, or anxious, or unable to sleep at night because your mind is troubled all the time - these days? Not at all 04/03/2025 Exercise Vital Sign Answer Date Recorde d On average, how many days pe r week do you engage in moderate to strenuous exercise (like a brisk walk)? 3 days 04/03/2025 On average, how many minutes do you engage in exercise at this level? 30 min 04/03/2025 Hunger Vital Sign Answer Date Recorded Within the past 12 months, y ou worried that your food would run out before you got the money to buy more. Never true 04/03/20 25 Within the past 12 months, t he food you bought just didn't last and you didn't have money to get more. Never true 04/03/2025 PRAPARE - Transportation Answer Date Re corded In the past 12 months, has l ack of transportation kept you from medical appointments or from getting medications? No 06/2025 In the past 12 months, has l ack of transportation kept you from meetings, work, or from getting things needed for daily living? No 04/03/2025 Housing Stability Vital Sign Answer Danish e [...] place to sleep or slept in a alf (including now)? Patient declined 01/04/2024 Housing Stability Vital Sign Answer Danish e Recorded In the last 12 months, was t here a time when you were not able to pay the mortgage or rent on time? No 04/03/2025 In the past 12 months, how m any times have you moved where you were living? 0 04/03/2025 At any time in the past 12 m [facility], were you homeless or living in a alf (including now)? No 04/03/2025 Education Answer Date Recorded What is the [...] Sign Reading Time Taken Comments Blood Pressure 130/78 07/08/2025 9:05 AM CDT Pulse 88 07/08/2025 9:05 AM CDT Temperature 36.4 C (97.5 F) 07/08/2025 9:05 AM CDT Respiratory Rate 14 05/19/2025 8:16 AM CDT Oxygen Saturation 97% 07/08/2025 9:05 AM CDT Inhaled Oxygen Concentration - - Weight 128.4 kg (283 lb) 07/08/2025 9:05 AM CDT Height 188 cm (6' 2) 07/08/2025 9:05 AM CDT Body Mass Index 36.34 07/08/2025 9:05 AM CDT Plan of Treatment Upcoming Encounters Date Type Department Care Team (Late st Contact Info) Description 09/26/2025 7:45 AM CDT Office Visit [facility] - Family Medicine - [address] [place] [id number] Cornelius Riddle APRN, MILL CONTROLLER [address] [facility] [address] [place] [address] 05/19/2026 9:00 AM CDT Office Visit [facility] - Pulmonology & Sleep Medicine - [address] [place] [id number] Nga Caba APRN, MILL CONTROLLER [address] [facility] [address] [place] [address] Health Maintenance Due Date Last Done Comments Diabetes: Foot Exam 1945 Respiratory Syncytial Virus (RSV) Immunization (Adult) (1 - 1-dose 75+ series) 2020 Medicare Subsequent AWV [id number] 05/27/2025 05/27/2024 Influenza Immunization (#1) 2025 09/2 12/2022, 08/15/2022, 07/29/2021, Additional history exists SARS-COV-2 Immunization ( season) 2025 08/18/2023, 04/15/2022, 08/24/2021, Additional history exists Zoster Immunization (2 of 2) 09/02/2025 07/08/2025 Diabetes: Nephropathy Screening 11/20/2025 11/20/2024, 04/04/2024, 2023, Additional history exists Diabetes: Hemoglobin A1c 02/18/2026 025, 05/21/2025, 11/25/2024, Additional history exists Diabetes: Eye Exam 04/28/2026 04/28/2025, 0 03/18/2024, 02/27/2023, Additional history exists DTaP/Tdap/Td Immunization Discontinued 07/13/2015 Hepatitis C Virus (HCV) Screening Completed 12/19/2017 Immunochemical Fecal Occult Blood Discontinued 03/06/2019 Colonoscopy Discontinued 03/27/2019, 05/05/2014 Colorectal Cancer Screening Discontinued Pneumococcal Immunization (50+ years) Completed 07/29/2020, 09/05/2016, 09/05/2016, Additional history exists Pneumococcal Immunization Combined Discontinued 07/29/2020, 09/05/2016, 09/05/2016, Additional history exists Cologuard Discontinued Hepatitis B Immunization Aged Out No longer eligible based on patient's age to complete this topic Human Papillomavirus (HPV) Immunization Aged Out No longer eligible based on patient's age to complete this topic Meningococcal Immunization (ACWY) Aged Out No longer eligible based on patient's age to complete this topic Rotavirus Immunization Aged Out No lo nger eligible based on patient's age to complete this topic Procedures Procedure Name Priority Date/Time Associated Diagnosis Comments HEMOGLOBIN A1C W/ ESTIMATED GLUCOSE Routine 08/21/2025 8:25 AM CDT Diabetic polyneuropathy associated with type 2 diabetes mellitus (HCC) LIPID PANEL Routine 08/21/2025 8:25 AM CDT Hyperlipidemia, unspecified hyperlipidemia type DERMATOLOGY CONSULT 07/15/2025 1 2:00 AM CDT DERMATOLOGY CONSULT 07/01/2025 1 2:00 AM CDT HM DILATED EYE EXAM 04/28/2025 1 2:00 AM CDT CMP (COMPREHENSIVE METABOLIC PANEL) STAT 11/20/2024 12:40 PM CLIP RIVETER STOOL, OCCULT BLOOD, DIAGNOSTIC, VIA GUAIAC Routine 03/06/2019 4:42 PM CDT Diarrhea, unspecified type HEPATITIS C ANTIBODY Routine 12/19/2017 7:16 AM CLIP RIVETER Encounter for hepatitis C screening test for low risk patient HM COLONOSCOPY Routine 05/05/2014 from Last 3 Months or Most Recently Relevant to Health Maintenance Results * (ABNORMAL) HEMOGLOBIN A1C W/ ESTIMATED GLUCOSE (08/21/2025 8:25 AM CDT) HGB-A1C 7.4(H) 4.0 - 6.0 % 08/21/2025 9:31 AM CDT [facility] Est Average Glucose 165.7 mg/dL 08/21/2025 9:31 AM CDT [facility] Blood Venipuncture / Unknown 08/21/2025 8:25 AM CDT 08/21/2025 9:04 AM CDT Narrative [facility] - 08/21/2025 9:31 AM CDT HEMOGLOBIN A1C: DIABETIC PATIENTS: WELL-CONTROLLED: 6.2 - 7.0 INTERMEDIATE WELL-CONTROLLED: 7.0 - 9.0 POORLY-CONTROLLED: >9.0 Specimens containing greater than 5% of Hemoglobin F may result in lower than expected % HbA1C results. Denys La MD CHEMISTRY ORDERABLES Cheyenne orellana Result [facility] [address] [place] [address] * (ABNORMAL) LIPID PANEL (08/21/2025 8:25 AM CDT) CHOLESTEROL 152 <200 mg/dL 08/21/2025 9:39 AM CDT [facility] TRIGLYCERIDES 198(H) <150 mg/dL 08/21/2025 9:39 AM CDT [facility] HDL CHOLESTEROL 42 >40 mg/dL 9:39 AM CDT [facility] LDL 70 <130 mg/dL 08/21/2025 9:39 AM CDT [facility] VLDL 40 10 - 50 mg/dL 08/21/2025 9:39 AM CDT [facility] CHOL/HDL RATIO 3.6 0.0 - 4.4 08/21/2025 9:39 AM CDT [facility] NON-HDL CHOLESTEROL 110 <130 mg/dL 08/21/2025 9:39 AM CDT [facility] IS THE PATIENT REQUIRED TO BE FASTING? Yes 08/21/2025 9:39 AM CDT [facility] HAS THE PATIENT BEEN FASTING? Yes 08/21/2025 9:39 AM CDT [facility] Blood Venipuncture / Unknown 08/21/2025 8:25 AM CDT 08/21/2025 9:06 AM CDT us Denys La MD CHEMISTRY ORDERABLES Cheyenne l Result [facility] [address] [place] [address] * DERMATOLOGY CONSULT (07/15/2025 12:00 AM CDT) Only the most recent of2 resultswithin the time period is included. 07/15/2025 Denys La MD GENERIC SCAN ORDERS CONSU LT Final Result SCAN * HM DILATED EYE EXAM (04/28/2025 12:00 AM CDT) 04/28/2025 Provider Scan PROCEDURE/MINOR SURGICAL ORDERAB LES Final Result Performing Organization Address City/[facility]/ZIP Co de Phone Number SCAN * (ABNORMAL) CMP (Comprehensive Metabolic Panel) (11/20/2024 12:40 PM CLIP RIVETER) SODIUM 141 136 - 145 mmol/L 11/20/2024 1:09 PM [facility] POTASSIUM 3.6 3.5 - 5.1 mmol/L 11/20/2024 1:09 PM [facility] CHLORIDE 107 98 - 107 mmol/L 11/20/2024 1:09 PM [facility] CO2, VENOUS 24 22 - 30 mmol/L 11/20/2024 1:09 PM [facility] ANION GAP 13.6 <18.0 mmol/L 11/20/2024 1:09 PM [facility] GLUCOSE 236(H) 70 - 99 mg/dL 11/20/2024 1:09 PM [facility] BUN 13 8 - 26 mg/dL 11/20/2024 1:09 PM [facility] CREATININE, BLOOD 1.02 0.70 - 1.30 mg/dL 11/20/2024 1:09 PM [facility] BUN/CREATININE RATIO 13 12 - 20 ratio 11/20/2024 1:09 PM [facility] TOTAL PROTEIN 6.7 6.3 - 8.2 g/dL 11/20/2024 1:09 PM [facility] ALBUMIN 3.9 3.5 - 5.0 g/dL 11/20/2024 1:09 PM [facility] A/G RATIO 1.4 1.0 - 2.2 11/20/2024 1:09 PM CLIP RIVETER [facility] CALCIUM 9.5 8.7 - 10.5 mg/dL 11/20/2024 1:09 PM CLIP RIVETER [facility] T BILI 0.4 0.2 - 1.2 mg/dL 11/20/2024 1:09 PM CLIP RIVETER [facility] SGOT (AST) 19 5 - 34 U/L 11/20/2024 1:09 PM CLIP RIVETER [facility] SGPT (ALT) 23 0 - 55 U/L 11/20/2024 1:09 PM CLIP RIVETER [facility] ALKALINE PHOSPHATASE 68 40 - 150 U/L 11/20/2024 1:09 PM CLIP RIVETER [facility] GFR, ESTIMATED >60 >=60 11/20/2024 1:09 PM CLIP RIVETER [facility] Comment: Creatinine Clearance is the preferred criteria for selecting drug dose adjustments in renally impaired patients. The GFR is provided as additional pertinent clinical information. GFR is reported in mL/min/1.73 sq m. Calculation based on the Chronic Kidney Disease Epidemiology Collaboration (CKD- EPI) equation refit without adjustment for race. GFR, EST. >60 >=60 024 1:09 PM CLIP RIVETER [facility] GFR, EST. NONAFRICAN >60 >=60 11/20/2024 1:09 PM CLIP RIVETER [facility] Blood Venipuncture / Unknown 11/20/2024 12:40 PM CLIP RIVETER 11/20/2024 12:48 PM CLIP RIVETER us Angelito Mora DO CHEMISTRY ORDERABLES Fi nal Result [facility] [address] [place] [address] * STOOL, OCCULT BLOOD, DIAGNOSTIC (03/06/2019 4:42 PM CDT) OCCULT BLOOD DIAG Negative Negative 03/06/2019 5:59 PM CDT [facility] Stool specimen (specimen) STOOL SPECIMEN / Unknown Non-Phlebotomy Collection / Unknown 03/06/2019 4:42 PM CDT 03/06/2019 4:42 PM CDT us Cornelius Riddle APRN, MILL CONTROLLER BODY FLUIDS & ST OOLS ORDERABLES Final Result Performing Organization Address City/[facility] Co de Phone Number [facility] [address] [place] [address] * HEPATITIS C ANTIBODY (12/19/2017 7:16 AM CLIP RIVETER) hepatitis C antibody 0.42 <1 S/CO 12/19/2017 2:14 PM CLIP RIVETER [facility] Comment: Signal/Cutoff ratio < 0.79 is Nondetected Signal/Cutoff ratio 0.80-0.99 is Grayzone Signal/Cutoff ratio > 0.99 is Detected Supplemental assays are recommended if signal/cutoff ratio is >/=1.00. Signal/cutoff ratio result >/= 5.00 is 97% predictive of positivity for recombinant immunoblot assay (RIBA) and will be reported to the [place] Department of Public Health as required. Blood specimen (specimen) Venipuncture / Unknown 12/19/2017 7:16 AM CLIP RIVETER 12/19/2017 9:51 AM CLIP RIVETER Denys La MD CHEMISTRY ORDERABLES Cheyenne l Result Performing Organization Address City/[facility] Co de Phone Number [facility] [address] [place] [address], [place] * COLONOSCOPY (05/05/2014) us Brady Gustafson DO PROCEDURE/MINOR SURGICAL ORDERA BLES Final Result from Last 3 Months or Most Recently Relevant to Health Maintenance Insurance MEDICARE [facility] Advance Directives Documents on File Type Date Recorded Patient Pourer Bull Ladle Expl anation Power of Field Sales Associate for Health Care 03/26/2025 4:48 PM Angeles Monge POA-, 03/28/2015 Healthcare Agents on File Name Relationship Healthcare Agent Relationshi p Communication Angeles Monge Spouse Healthcare POA [email or web address] [place] Care Teams Lot Associate Relationship Specialty Start Date End Date Denys La MD [address] [address] PCP - General Family Medicine 11/21/17 Olaf To DPM Podiatry 03/28/16 Aramis Bae MD [address] [address] Consulting Physician Interventional Cardiology 09/23/20 Kun Renteria MD [address] [facility] [address] [place] [address] General Surgery 10/26/20 NurseRajendra Anti Coag OR 02/19/21 Nga Caba APRN, MILL CONTROLLER [address] [facility] [address] [place] [address] Nurse Practitioner Advanced Practice Nurse 03/21/22
--- OUTSIDE RECORDS SUMMARY | 2025-09-24 13:08 | XMS_ITS | Encounter Summary ---
Author Organization [facility] Address [address] [place] [address] Phone Care Team Providers Care Road Mender Name Role Phone Olaf To Oscar DPM Unavailable [phone] Denys La MD Primary Care Provider [phone] Aramis Bae MD Unavailable Kun Renteria MD Unavailable [phone] Nurse, Rajendra Antoine Coag Unavailable Unavailab Nga Santana APRN, SALES REPRESENTATIVE [employer] Unavailable [phone] Allyssa Michele RN Unavailable Unavailable Allyssa Michele RN Unavailable Unavailable Reason for Visit * Reason Comments Medication Refill Encounter Details Date Type Department Care Team (Late st Contact Info) Description 05/07/2024 [facility]ill [facility] - Family Medicine [facility] [address] [place] [address] Denys La MD [address] [address] Medication Refill Social History Tobacco Use Types Packs/Day Years Used Date Smoking Tobacco: Former Cigarettes 1 Q uit: 03/15/2005 Cigars Smokeless Tobacco: Never Alcohol Use Standard Drinks/Week Comments Yes 0 (1 standard drink = 0.6 oz pur e alcohol) rare [facility] Utilities Answer Date Recorded In the past 12 months has e [employer], gas, oil, or water [employer] threatened to shut off services in your home? Patient declined 01/04/2024 Social Connection and Isolation Panel Answer Date Recorded In a typical week, how many times do you talk on the phone with family, friends, or neighbors? Patient declined 01/04/2024 How often do you get togethe r with friends or relatives? Patient declined 01/04/2024 How often do you attend nondenominational or episcopal serv ices? Patient declined 01/04/2024 Do you belong to any clubs o r organizations such as nondenominational groups, unions, fraternal or athletic groups, or [...] place to sleep or slept in a half-way (including now)? Patient declined 01/04/2024 Education Answer [...] Telephone Encounter - Diya Brown RN - 05/07/2024 10:50 AM CDT Medication(s) refilled and signed per [facility] Chronic Medication Refill Standing Order for Pediatricand Adult Patients. Requested Prescriptions Pending Prescriptions Disp Refills tamsulosin (FLOMAX) 0.4 MG Capsule [Pharmacy Med Name: Tamsulosin HCl 0.4 MG Oral Capsule] 90 Capsule 1 Sig: Take 1 capsule by mouth once daily in the morning Benign Prostatic Hyperplasia Medications Protocol Passed - 05/07/2024 6:52 AM Passed - Visit with relevant provider in past 12 months or upcoming 90 days Recent Visits Date Type Provider Dept 04/17/24 Office Visit Denys La MD [facility] 01/04/24 Office Visit Denys La MD [facility] [place] 09/21/23 Office Visit Denys La MD [facility] 06/08/23 Office Visit Denys La MD [facility] Rajendra 05/23/23 Office Visit Shelly Coffey APRN, SARAH [facility] Rajendra 05/18/23 Office Visit Cornelius Riddle APRN, SARAH [place] 05/15/23 Office Visit Cornelius Riddle APRN, SARAH [facility] Showing recent visits within past 365 days and meeting all other requirements Future Appointments No visits were found meeting these conditions. Showing future appointments within next 90 days and meeting all other requirements documented in this encounter Plan of Treatment Upcoming Encounters Date Type Department Care Team (Late st Contact Info) Description 09/26/2025 7:45 AM CDT Office Visit [facility] - Family Medicine - [place] [address] [place] [address] Cornelius Riddle APRN, SALES REPRESENTATIVE [employer] #2 [facility] [address] [place] [address] 05/19/2026 9:00 AM CDT Office Visit [facility] - Pulmonology & Sleep Medicine - [place] [address] [place] [address] Nga Caba APRN, SALES REPRESENTATIVE [employer] #2 [facility] [address] [place] [address] documented as of this encounter Visit Diagnoses Not on filedocumented in this encounter Additional Health Concerns Infection Onset Date Last Indicated Resolved Time Respiratory Rule-Out 11/29/2024 11/29/2024 025 10:21 AM SHEET TESTER COVID - 19 11/29/2024 11/29/2024 11/29/2024 10:2 1 AM SHEET TESTER Respiratory Rule-Out 03/04/2025 03/04/20252 025 10:13 AM CDT Assessment Noted Time PHQ-9 Depression Total Score: 0 08/18/20 21 10:25 AM CDT documented as of this encounter Care Teams Road Mender Relationship Specialty Start Date End Date Denys La MD #2 [facility] [address] [place] [address] PCP - General Family Medicine 11/21/17 Olaf To DPM Podiatry 03/28/16 Aramis Bae MD #2 [facility] [address] [place] [address] Consulting Physician Interventional Cardiology 09/23/20 Kun Renteria MD #2 [facility] [address] [place] [address] General Surgery 10/26/20 NurseRajendra Anti Coag [place] 02/19/21 Nga Caba APRN, SALES REPRESENTATIVE [employer] #2 [facility] [address] [place] [address] Nurse Practitioner Advanced Practice Nurse 03/21/22 Allyssa Michele, RN [place] Nurse Plastic Joint Maker 06/04/24 06/04/24 Allyssa Michele RN [place] Nurse Plastic Joint Maker 03/26/25 04/04/25 documented as of this encounter
--- OUTSIDE RECORDS SUMMARY | 2025-09-24 13:08 | XMS_ITS | Encounter Summary ---
Author Organization [facility] Address [address] [place] [address] Phone Care Team Providers Care Rail Operator Name Role Phone Olaf To Oscar DPM Unavailable [phone] Denys La MD Primary Care Provider [phone] Aramis Bae MD Unavailable Kun Renteria MD Unavailable [phone] Nurse, Rajendra Antoine Coag Unavailable Unavailab Nga Santana APRN, G[employer] POWERPLANT MECHANIC HELPER Unavailable [phone] Allyssa Michele RN Unavailable Unavailable Allyssa Michele RN Unavailable Unavailable Reason for Visit * Reason Comments Medication Refill Encounter Details Date Type Department Care Team (Late st Contact Info) Description 03/17/2024 Refill [facility] - [facility] [address] [place] [address] Denys La MD [address] [address] Medication Refill Social History Tobacco Use Types Packs/Day Years Used Date Smoking Tobacco: Former Cigarettes 1 Q uit: 03/15/2005 Cigars Smokeless Tobacco: Never Alcohol Use Standard Drinks/Week Comments Yes 0 (1 standard drink = 0.6 oz pur e alcohol) rare [facility] Utilities Answer Date Recorded In the past 12 months has e [email or web address], gas, oil, or water [employer] threatened to shut off services in your home? Patient declined 01/04/2024 Social Connection and Isolation Panel Answer Date Recorded In a typical week, how many times do you talk on the phone with family, friends, or neighbors? Patient declined 01/04/2024 How often do you get togethe r with friends or relatives? Patient declined 01/04/2024 How often do you attend islam or spiritism serv ices? Patient declined 01/04/2024 Do you belong to any clubs o r organizations such as islam groups, unions, fraternal or athletic groups, or [...] Answer Date Recorded PHQ-2 Score 0 07/26/2019 [facility] - Occupational Stress [...] place to sleep or slept in a care home (including now)? Patient declined 01/04/2024 Education Answer [...] Telephone Encounter - Diya Brown RN - 03/18/2024 2:38 PM CDT Medication failed the protocol, provider to review and approve the medication order if appropriate. Requested Prescriptions Pending Prescriptions Disp Refills glimepiride (AMARYL) 2 MG Tablet [Pharmacy Med Name: Glimepiride 2 MG Oral Tablet] 90 Tablet 2 Sig: Take 1 tablet by mouth once daily with breakfast Sulfonylureas Protocol Failed - 03/17/2024 1:05 PM Failed - GFR on record in past 6 months GFR, EST. NONAFRICAN Date Value Ref Range Status 2023 >60 >=60 Final Passed - Visit with relevant provider in past 6 months or upcoming 90 days Recent Visits Date Type Provider Dept 01/04/24 Office Visit MohyuddinDenys MD [facility] 09/21/23 Office Visit Denys La MD [facility] Showing recent visits within past 182 days and meeting all other requirements Future Appointments Date Type Provider Dept 04/17/24 Appointment Denys La MD [facility] Showing future appointments within next 90 days and meeting all other requirements Passed - HgA1C on record in past 6 months HGB-A1C Date Value Ref Range Status 12/19/2023 7.6 (H) 4.0 - 6.0 % Final documented in this encounter Plan of Treatment Upcoming Encounters Date Type Department Care Team (Late st Contact Info) Description 09/26/2025 7:45 AM CDT Office Visit [facility] - Family Medicine - [place] [address] [place] [address] Cornelius Riddle APRN, GAS TURBINE POWERPLANT MECHANIC HELPER #2 [facility] [address] [place] [address] 05/19/2026 9:00 AM CDT Office Visit [facility] - Pulmonology & Sleep Medicine - [place] [address] [place] [address] Nga Caba APRN, GAS TURBINE POWERPLANT MECHANIC HELPER #2 [facility] [address] [place] [address] documented as of this encounter Visit Diagnoses Not on filedocumented in this encounter Additional Health Concerns Infection Onset Date Last Indicated Resolved Time Respiratory Rule-Out 11/29/2024 11/29/2024 025 10:21 AM AERIAL GUNNER COVID - 19 11/29/2024 11/29/2024 11/29/2024 10:2 1 AM AERIAL GUNNER Respiratory Rule-Out 03/04/2025 03/04/2025 025 10:13 AM CDT Assessment Noted Time PHQ-9 Depression Total Score: 0 08/18/20 21 10:25 AM CDT documented as of this encounter Care Teams Rail Operator Relationship Specialty Start Date End Date Denys La MD #2 [facility] [address] [place] [address] PCP - General Family Medicine 11/21/17 Olaf To DPM Podiatry 03/28/16 Aramis Bae MD #2 [facility] [address] [place] [address] Consulting Physician Interventional Cardiology 09/23/20 Kun Renteria MD #2 [facility] [address] [place] [id number] General Surgery 10/26/20 NurseRajendra Anti Coag [place] 02/19/21 Nga Caba APRN, GAS TURBINE POWERPLANT MECHANIC HELPER #2 [facility] [address] [place] [address] Nurse Practitioner Advanced Practice Nurse 03/21/22 Allyssa Michele, RN [place] Nurse Accounting Officer 06/04/24 06/04/24 Allyssa Michele RN [place] Nurse Accounting Officer 03/26/25 04/04/25 documented as of this encounter
== END 2025-09-24 11:30 | disposition home or self-care (01) ==
PROVIDERS: PCP Family Medicine; Visit Provider Orthopaedic Surgery
DX: M17.12 Unilateral primary osteoarthritis, left knee (principal)
CPT/HCPCS: 73564